=== PATIENT | male | born 1970 | race Caucasian/White ===

== ENCOUNTER 2019-03-11 14:59 | Inpatient (IN) ==
[2019-03-11] MEDS ORDERED: M.V.I.-12 10 ML, FOLIC ACID 1 MG, MAGNESIUM SULFATE 1 GM, THIAMINE 100 MG in NS 1,000 ML IV ONE (15:32)
[2019-03-11 16:18] LABS: BASO# 0.09 X1000 (0.0-0.2); BASO% 1.6 % (0.0-0.8); EOS# 0.03 X1000 (0.0-0.7); EOS% 0.5 % (0.0-10.0); HEMATOCRIT 42.1 % (42.0-52.0); LYMPH# 0.76 X1000 (1.2-3.4); LYMPH% 13.4 % (20.5-51.1); MCH 32.3 PG (27-31); MCHC 33.3 g/dL (33-37); MONO% 8.8 % (1.7-9.3); MPV 9.9 FL (7.4-10.4); NEUT% 75.7 % (42.2-75.2); PLT 70 X1000 (130-400); RBC 4.34 XMIL (4.7-6.1); RDW 16.7 % (11.5-14.5); WBC 5.68 X1000 (4.8-10.8)
--- NOTE | 2019-03-11 16:22 | Diag Imaging Result Doc PS360 ---
EXAM: CT MAXILLOFACIAL(SINUS) W/O CO 03/11/2019 HISTORY: swelling to face TECHNIQUE: CT of the facial bones COMMENT: There are mucus retention cysts in both maxillary sinuses. There are no air-fluid levels. There is no evidence of fracture. There is slight deviation of the nasal septum to the left. The infundibula are patent bilaterally. The orbits are unremarkable. There is apparent subcutaneous soft tissue swelling over the right cheek. This appears primarily superficial to the platysma. There is no evidence of discrete fluid collection to suggest an abscess. IMPRESSION: No evidence of acute bony abnormality. Superficial soft tissue inflammation on the right as described. Electronically signed by Mert Bartlett 03/11/2019 4:19 PM
--- NOTE | 2019-03-11 16:25 | Diag Imaging Result Doc PS360 ---
EXAM: CT HEAD/C-SPINE W/O CONTRAST 03/11/2019 HISTORY: AMS, poss LOC TECHNIQUE: This exam was performed using automated exposure control, adjustment of mA or kV according to patient size, and/or use of iterative reconstruction technique. COMMENT: There is no evidence of mass effect, bleed, or abnormal extra-axial fluid collection. The visualized paranasal sinuses are clear. cervical spine: There is marked disc space narrowing with anterior and posterior osteophyte formation at the C5-6 level. There is some uncovertebral arthropathy with encroachment on the intervertebral foramina at this level. No prevertebral soft tissue swelling is present. There is a calcified granuloma in the left apex. IMPRESSION: No evidence of acute intracranial disease. Degenerative disc disease at C5-6. Electronically signed by Mert Bartlett 03/11/2019 4:22 PM
--- NOTE | 2019-03-11 16:28 | Diag Imaging Result Doc PS360 ---
EXAM: RIBS BILATERAL W/PA CHEST 03/11/2019 HISTORY: rib pain, bruising TECHNIQUE: PA chest with bilateral RIBS seven views COMMENT: The inspiration is suboptimal. There is no evidence of acute cardiac or pulmonary disease. The ribs appear to be intact. IMPRESSION: No evidence of acute disease. Electronically signed by Mert Bartlett 03/11/2019 4:25 PM
[2019-03-11 16:37] LABS: AGAP 13; ALB/GLOB RATIO 1.8; ALBUMIN 5.1 g/dL (3.5-5.0); ALKALINE PHOSPHATASE 67 U/L (32-122); BUN 15 mg/dL (8-22); CALCIUM 9.1 mg/dL (8.8-10.2); CHLORIDE 104 mmol/L (98-107); COSMO 289; CREATININE 0.5 mg/dL (0.7-1.2); ESTIMATED GFR > 60; GLUCOSE 128 mg/dL (70-104); GOT 66 U/L (10-34); GPT 38 U/L (10-44); MAGNESIUM 2.1 mg/dL (1.5-2.7); SODIUM 144 mmol/L (136-145); TCO2 27 mmol/L (25-35); TOTAL BILIRUBIN 0.35 mg/dL (0.20-1.00)
[2019-03-11 16:43] LABS: CK PROFILE 1271 U/L (24-204)
[2019-03-11 17:00] LABS: CK INDEX 1.5 (0.0-2.5); CK-MB 19.32 ng/mL (0.0-5.0)
--- NOTE | 2019-03-11 17:23 | Diag Imaging Result Doc PS360 ---
EXAM: FOREARM-LEFT 03/11/2019 HISTORY: L arm pain TECHNIQUE: Left forearm two views COMMENT: There is no evidence of fracture, dislocation, or periosteal reaction. IMPRESSION: No acute bony abnormality. Electronically signed by Mert Bartlett 03/11/2019 5:21 PM
[2019-03-11] MEDS ORDERED: TYLENOL PO PRN (17:40)
[2019-03-11] MEDS ORDERED: ZOFRAN IV PRN (17:40)
[2019-03-11] MEDS ORDERED: ATIVAN IV PRN (17:40)
[2019-03-11 18:05] LABS: URINE SOURCE CLEAN CATCH
[2019-03-11 18:09] LABS: UR EPITHELIAL CELLS <10 /HPF (<10); URINE BACTERIA NEGATIVE /HPF; URINE RBC <10 /HPF (<10); URINE WBC <10 /HPF (<10)
[2019-03-11 18:10] LABS: BILIRUBIN URINE NEGATIVE (NEGATIVE); BLOOD URINE TRACE (NEGATIVE); COLOR YELLOW; GLUCOSE URINE NEGATIVE (NEGATIVE); KETONE URINE NEGATIVE (NEGATIVE); LEUKOCYTES URINE NEGATIVE (NEGATIVE); NITRITE URINE NEGATIVE (NEGATIVE); PH URINE 6.5; PROTEIN URINE 30 mg/dL (NEGATIVE); SP GRAVITY URINE 1.021; TURBIDITY URINE CLEAR (CLEAR); UROBILINOGEN URINE NORMAL (NORMAL)
[2019-03-11 18:26] LABS: UR AMPHETAMINES QUAL NONE DETECTED (NONE DETECT); UR BARBITUATES QUAL NONE DETECTED (NONE DETECT); UR BENZODIAZEPIN QUAL NONE DETECTED (NONE DETECT); UR CANNABINOIDS QUAL NONE DETECTED (NONE DETECT); UR COCAINE QUAL NONE DETECTED (NONE DETECT); UR METHADONE QUAL NONE DETECTED (NONE DETECT); UR OPIATES QUAL NONE DETECTED (NONE DETECT); UR OXYCODONE QUAL NONE DETECTED (NONE DETECT); UR PCP QUAL NONE DETECTED (NONE DETECT)
--- NOTE | 2019-03-11 18:41 | HISTORY AND PHYSICAL ---
PRIMARY CARE PROVIDER: None. CHIEF COMPLAINT: Blacked out and fell on his face, with a right facial contusion and skin tear, and alcohol intoxication. HISTORY OF PRESENT ILLNESS: Mr. Lambert Massey is a 48-year-old male with a long history of heavy alcohol abuse, with history of withdrawal seizures and SVT. He comes in today due to having a blackout spell where he hit his right cheekbone, and caused a significant contusion with a quarter-sized skin tear. His daughter brought him in. He has an alcohol level of 483. He also has some signs of dehydration and elevated CK, a little rhabdomyolysis without kidney involvement. With an alcohol level of 483, he is still able to stay perfectly awake, is able to answer all questions asked, gave great detail about his history. He is wishing that he could quit drinking. He is really tired of having blackout spells and having to hide the alcohol abuse. He states that he feels ashamed. PAST MEDICAL HISTORY: 1. Degenerative disk disease, C5 through C6. 2. Seizures secondary to alcohol withdrawal. Last one was around 6 months ago. He states he has only had 2 in his time as an alcoholic. 3. History of SVT that was also alcohol withdrawal-related. PAST SURGICAL HISTORY: Right inguinal hernia repair. SOCIAL HISTORY: He drinks 1 L of vodka per day for over a year. Prior to that he had quit for year and a half, and prior to that he stated he drank a lot of beer. He denies any tobacco abuse or illicit drug use. 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 His routine is around 4 a.m. he wakes up, takes a small breakfast and then he starts sipping the vodka all day long, essentially drinking 1 L per day. He claims to eat a healthy breakfast, blueberries, chicken. He works out at [employer] in [place]. He states he was for 22 years but is now . He had 3 children, all adult at this time. 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 He claims that he was not heavy drinker back then. He has had multiple attempts to stop drinking, but admits that AA meetings he feels like do not help. FAMILY HISTORY: Father had prostate cancer and from lung cancer. Mother is healthy at 90 years old. ALLERGIES: No known drug allergies. HOME MEDICATIONS: None. REVIEW OF SYSTEMS: He has multiple bruising and different stages of bruising that are a little painful. I believe it is his right forearm that is a little painful. His right facial area where he hit is a little tender. Otherwise he has no other complaints. Denies having any of the shakes at this time. PHYSICAL EXAMINATION: VITAL SIGNS: Temperature 98.6 degrees, heart rate 98, respiratory rate 18, blood pressure 124/85, O2 saturation 91% on room air. GENERAL: Five feet 10 inches tall, 160 pounds. BMI is 23. Mr. Lambert Massey is a 48-year-old male. He is in no acute distress. He is actually able to answer questions appropriately despite having a greater than 400 alcohol level 0. He has a strong smell of alcohol to his skin. HEENT: Right facial contusion with skin tear. Pupils equal, round and reactive to light. Extraocular movements intact. Mucous membranes are dry. NECK: Trachea midline. CARDIOVASCULAR: S1, S2. Regular rate and rhythm. No rubs, gallops, murmurs. No lower extremity edema. Dorsalis and radial pulses +2. Negative JVD or carotid bruits. PULMONARY: Clear to auscultation. Bilateral breath sounds. No accessory muscle use or work of breathing noted. GASTROINTESTINAL: Soft, nontender, nondistended. Positive bowel sounds x4. EXTREMITIES: Moves all extremities equally. Full range of motion. NEUROLOGIC: A and O x3. Follows commands. Sensory is intact. SKIN: Warm, dry. Right facial skin tear with contusion, and multiple stages of bruising throughout all extremities. LABORATORY DATA: White blood cells 5000, hemoglobin 14, hematocrit 42, platelet count 70,000. Sodium 144, potassium 4.0, BUN 15, creatinine 0.5, glucose 128, calcium 9.1, magnesium 2.1, bilirubin 0.35, AST 66, ALT 38. CK 1271, MB 19, albumin 5.1. Alcohol level is 483. DIAGNOSTIC DATA: Head and cervical spine CT: C5 through C6 degenerative disk disease but nothing acute. Maxillofacial CT: No evidence of acute injury except for there is soft tissue inflammation in the right cheek area. Ribs with chest x-ray: No acute findings. Right forearm x-ray: No fracture. ASSESSMENT AND PLAN: 1. Alcohol intoxication with blackout spell and fall, that resulted in a right facial contusion with skin tear. We will get Wound Care to see to the right facial skin tear. He will be on Librium, p.r.n. Ativan and watched in the intensive care unit. We will recheck another alcohol level in the morning. 2. Elevated CKs with normal kidney function. Likely just dehydration. He will get intravenous fluid hydration, along with a banana bag. 3. Thrombocytopenia with multiple bruising, also with a little bit of transaminitis. This is likely from longstanding alcohol abuse. 4. History of supraventricular tachycardia and seizures that resulted from alcohol withdrawal. We will just monitor. He will be in the intensive care unit for that and on telemetry with Ativan and Librium. 5. I believe he wishes to quit drinking alcohol. He will need inpatient help likely at some sort of facility if he wants to quit. Dictated by REHANA Tsai for Mello Hairston MD cc: REHANA Tsai MD
[2019-03-11] MEDS: LIBRIUM PO SCH (18:45)
--- NOTE | 2019-03-11 18:48 | HISTORY AND PHYSICAL ---
HISTORY OF PRESENT ILLNESS/PLAN: This is a 48-year-old gentleman, severe alcoholic. He drinks about a liter a day. Apparently, he fell earlier today. He does remember injuring his arm with bruising, but he does not remember how he injured his face, because he has an abrasion with some superficial oozing, bleeding, ecchymoses. The patient had an alcohol level of 483 to be exact and is showing some signs of withdrawal. He will be admitted for alcohol intoxication and detoxification. We will continue IV fluids, banana bag, and follow closely. He has some degree of rhabdomyolysis, which is probably just from the severe amount of alcohol that he has had, and the patient will be closely followed. This is a [id number] encounter note with Myrna Greer. cc: Mello Hairston MD
[2019-03-11] MEDS: PRILOSEC PO SCH (20:14)
[2019-03-11] MEDS: NS 1,000 ML IV SCH (20:14)
[2019-03-11] MEDS: ATIVAN IV PRN ×2 (20:54→22:50)
[2019-03-12] MEDS: LIBRIUM PO SCH ×4 (00:05→17:30)
[2019-03-12] MEDS: ATIVAN IV PRN ×7 (03:17→19:49)
[2019-03-12] MEDS: NS 1,000 ML IV SCH ×4 (03:17→17:30)
[2019-03-12 06:33] LABS: BASO# 0.07 X1000 (0.0-0.2); EOS# 0.06 X1000 (0.0-0.7); EOS% 1.8 % (0.0-10.0); HEMATOCRIT 37.3 % (42.0-52.0); HEMOGLOBIN 12.4 g/dL (14.0-18.0); LYMPH# 0.53 X1000 (1.2-3.4); LYMPH% 15.5 % (20.5-51.1); MCH 32.1 PG (27-31); MCHC 33.2 g/dL (33-37); MCV 96.6 FL (81-99); MONO# 0.47 X1000 (0.11-0.59); MONO% 13.7 % (1.7-9.3); MPV 10.2 FL (7.4-10.4); NEUT# 2.29 X1000 (1.4-6.5); PLT 55 X1000 (130-400); RBC 3.86 XMIL (4.7-6.1); RDW 15.9 % (11.5-14.5); WBC 3.42 X1000 (4.8-10.8)
[2019-03-12 06:47] LABS: AGAP 16; ALB/GLOB RATIO 1.5; ALBUMIN 4.1 g/dL (3.5-5.0); ALKALINE PHOSPHATASE 51 U/L (32-122); BUN 9 mg/dL (8-22); CALCIUM 7.9 mg/dL (8.8-10.2); CHLORIDE 106 mmol/L (98-107); COSMO 288; CREATININE 0.5 mg/dL (0.7-1.2); ESTIMATED GFR > 60; GLUCOSE 74 mg/dL (70-104); GOT 54 U/L (10-34); GPT 28 U/L (10-44); POTASSIUM 3.5 mmol/L (3.5-5.1); SODIUM 146 mmol/L (136-145); TCO2 24 mmol/L (25-35); TOTAL PROTEIN 6.9 g/dL (6.3-8.3)
[2019-03-12] MEDS: PRILOSEC PO SCH ×2 (07:34→08:10)
[2019-03-12] MEDS: M.V.I.-12 10 ML, FOLIC ACID 1 MG, MAGNESIUM SULFATE 1 GM, THIAMINE 100 MG in NS 1,000 ML IV SCH ×2 (07:34→08:10)
[2019-03-12 12:48] LABS: AGAP 12; ALB/GLOB RATIO 1.6; ALBUMIN 4.4 g/dL (3.5-5.0); ALKALINE PHOSPHATASE 59 U/L (32-122); BUN 9 mg/dL (8-22); CALCIUM 8.1 mg/dL (8.8-10.2); CHLORIDE 103 mmol/L (98-107); COSMO 281; CREATININE 0.5 mg/dL (0.7-1.2); ESTIMATED GFR > 60; GLUCOSE 120 mg/dL (70-104); GOT 55 U/L (10-34); GPT 30 U/L (10-44); POTASSIUM 3.4 mmol/L (3.5-5.1); SODIUM 141 mmol/L (136-145); TCO2 26 mmol/L (25-35); TOTAL BILIRUBIN 0.84 mg/dL (0.20-1.00); TOTAL PROTEIN 7.2 g/dL (6.3-8.3)
--- NOTE | 2019-03-12 12:58 | PROGRESS NOTE ---
DATE: 03/12/2019 SUBJECTIVE: The patient is awake, alert. He is tremulous despite Librium. OBJECTIVE DATA: His blood pressure is 132/97, heart rate of 88, respiratory rate of 30, saturations are 93% on 2 L.Cardiovascular: Regular rate and rhythm. Pulmonary: Bilateral breath sounds. Clear to auscultation. GI: Soft, nontender, nondistended. Bowel sounds are positive. LABORATORY DATA: White count is 3, hemoglobin and hematocrit 12 and 37, platelets of 55,000. Sodium is 146, AST is 54. Alcohol is down to 161. PROBLEM LIST: 1. Alcohol withdrawal syndrome. He is probably going to start withdrawing now so we will continue the Librium. He is on a banana bag. IV fluids and continue to monitor. I think he is probably stable enough for transfer. 2. Relative hypoxia. I am not quite sure why he has an O2 requirement, but we will continue to follow. 3. Elevated transaminases. We will get a right upper quadrant and check hepatitis but it is most likely related to significant alcohol abuse. DISPOSITION: He is still in the withdrawal phase. We will continue to follow closely. cc: Mello Hairston MD
[2019-03-12] MEDS ORDERED: ATIVAN IV PRN (20:40)
[2019-03-12] MEDS: ATIVAN 20 MG in NS 190 ML IV SCH (20:57)
[2019-03-12] MEDS ORDERED: PHENOBARBITAL IV PRN (21:17)
[2019-03-12] MEDS ORDERED: PHENOBARBITAL IV ONE ×2 (23:09→23:34)
[2019-03-12 23:58] LABS: URINE SOURCE CATH
[2019-03-13 00:03] LABS: BILIRUBIN URINE NEGATIVE (NEGATIVE); BLOOD URINE NEGATIVE (NEGATIVE); COLOR STRAW; GLUCOSE URINE NEGATIVE (NEGATIVE); KETONE URINE NEGATIVE (NEGATIVE); LEUKOCYTES URINE NEGATIVE (NEGATIVE); NITRITE URINE NEGATIVE (NEGATIVE); PH URINE 7.5; PROTEIN URINE NEGATIVE (NEGATIVE); SP GRAVITY URINE 1.007; TURBIDITY URINE CLEAR (CLEAR); UR EPITHELIAL CELLS <10 /HPF (<10); URINE BACTERIA NEGATIVE /HPF; URINE RBC <10 /HPF (<10); URINE WBC <10 /HPF (<10); UROBILINOGEN URINE NORMAL (NORMAL)
[2019-03-13] MEDS: LIBRIUM PO SCH ×5 (00:33→23:39)
[2019-03-13] MEDS: NS 1,000 ML IV SCH ×4 (00:33→18:30)
[2019-03-13] MEDS: ATIVAN IV PRN ×2 (02:15→21:41)
[2019-03-13 05:14] LABS: BASO# 0.05 X1000 (0.0-0.2); BASO% 1.1 % (0.0-0.8); EOS# 0.05 X1000 (0.0-0.7); EOS% 1.1 % (0.0-10.0); HEMATOCRIT 39.2 % (42.0-52.0); HEMOGLOBIN 13.4 g/dL (14.0-18.0); LYMPH# 0.38 X1000 (1.2-3.4); LYMPH% 8.2 % (20.5-51.1); MCH 32.8 PG (27-31); MCHC 34.2 g/dL (33-37); MCV 95.8 FL (81-99); MONO# 0.63 X1000 (0.11-0.59); MONO% 13.5 % (1.7-9.3); MPV 10.6 FL (7.4-10.4); NEUT# 3.55 X1000 (1.4-6.5); NEUT% 76.1 % (42.2-75.2); PLT 54 X1000 (130-400); RBC 4.09 XMIL (4.7-6.1); RDW 15.3 % (11.5-14.5); WBC 4.66 X1000 (4.8-10.8)
[2019-03-13] MEDS: ATIVAN 20 MG in NS 190 ML IV SCH (06:12)
--- NOTE | 2019-03-13 09:10 | Diag Imaging Result Doc PS360 ---
EXAM: US GB < RUQ (LIMITED) 03/13/2019 HISTORY: elevated liver enzymes TECHNIQUE: Right upper quadrant ultrasound COMMENT: The visualized portions of the aorta and inferior vena cava are within normal limits. The pancreatic head and body are normal in appearance. The liver is slightly hyperechoic. There is no evidence of biliary dilatation the common bile duct measuring 3 mm. There is antegrade flow in the portal vein. There is a fairly hyperechoic nodular echo within the gallbladder which does not appear to move and may represent a polyp. The gallbladder wall is slightly thickened. There is no evidence of para cholecystic fluid. There is no sonographic Gonzales sign. No abnormal fluid collections are present. The right kidney is without evidence of hydronephrosis or mass. IMPRESSION: The possibility of chronic cholecystitis and gallbladder polyp cannot be excluded. Hepatic steatosis. Electronically signed by Mert Bartlett 03/13/2019 9:08 AM
--- NOTE | 2019-03-13 09:18 | Diag Imaging Result Doc PS360 ---
EXAM: CHEST-2 VIEWS 03/13/2019 HISTORY: hypoxia TECHNIQUE: PA and lateral chest COMMENT: There is no evidence of acute cardiac or pulmonary disease. Compared to 03/11/2019 the lungs are better expanded previously. IMPRESSION: No definite evidence of acute disease. Electronically signed by Mert Bartlett 03/13/2019 9:16 AM
[2019-03-13] MEDS: PRILOSEC PO SCH (09:25)
[2019-03-13] MEDS: M.V.I.-12 10 ML, FOLIC ACID 1 MG, MAGNESIUM SULFATE 1 GM, THIAMINE 100 MG in NS 1,000 ML IV SCH (09:25)
[2019-03-13 10:57] LABS: AGAP 14; BUN 7 mg/dL (8-22); CALCIUM 8.6 mg/dL (8.8-10.2); CHLORIDE 103 mmol/L (98-107); COSMO 277; CREATININE 0.5 mg/dL (0.7-1.2); ESTIMATED GFR > 60; GLUCOSE 94 mg/dL (70-104); POTASSIUM 3.1 mmol/L (3.5-5.1); SODIUM 140 mmol/L (136-145); TCO2 23 mmol/L (25-35)
--- NOTE | 2019-03-13 14:46 | PROGRESS NOTE ---
DATE: 03/13/2019 SUBJECTIVE: The patient has no major complaints. OBJECTIVE: Blood pressure is 115/78, heart rate 88, respiratory rate 25, temperature 98.4 degrees, 96% on room air. Cardiovascular: Regular rate and rhythm. Pulmonary: Bilateral breath sounds clear to auscultation. GI: Soft, nontender, nondistended. Bowel sounds were positive. Laboratory Data: White count is 4, hemoglobin and hematocrit 13 and 39, platelets of 54,000. Potassium is 3.1. CPK is 711. PROBLEM LIST: 1. Alcohol withdrawal syndrome. He seems to be doing okay from the alcohol syndrome but his confusion is significantly increased and he is on Ativan. He is on an Ativan drip so we will continue to follow. He got significantly worse but I do not think he really started withdrawing until today or yesterday evening because his alcohol level yesterday morning was still 160. 2. Hypoxia, history of tobacco abuse. Chest x-ray is clear. I am not sure if this is some sleep apnea issues that have been undiagnosed. We will continue to follow. 3. Alcoholic hepatitis. His numbers are slowly trending downward so I am still waiting on his viral hepatitis screen. We will employment counselor on alcohol abuse. DISPOSITION: Pending clinical status but he is on an Ativan drip so he will have to be in the ICU. We will continue to follow. cc: Mello Hairston MD
--- NOTE | 2019-03-13 19:14 | PROVIDER DOCUMENTATION ---
This chart was entered by Emelia Sandhu Scribe, acting as scribe for Sadia Corona CRNP. HPI-Head Injury - General Chief Complaint: Head Injury Stated Complaint: DETOX--FACIAL INJURY Time Seen by Provider: 03/11/19 15:20 Source: patient, family (daughter) Allergies/Adverse Reactions: Patient Allergies Allergy/AdvReac Type Severity Reaction Status Date / Time No Known Allergies Allergy Verified 07/27/18 14:08 Home Medications: Home Medication List Medication Instructions Recorded Confirmed Last Taken Type Baclofen 10 mg PO TID #42 tab 07/30/18 Unknown Rx Chlordiazepoxide [Librium] 10 mg PO DIRECTED #45 cap 07/30/18 Unknown Rx Multivitamins/Minerals [Centrum 1 each PO DAILY tablet 07/30/18 Unknown Rx Silver] Omeprazole [Prilosec] 20 mg PO BID #60 cap 07/30/18 Unknown Rx - History of Present Illness-Head Injury Nature of Presenting Problem: 48 yowm presents to the ed with daughter at bedside requesting detox for pt. pt on exam has bruising with abrasions noted to bilateral back and rt cheek. pt sts back abrasion was from a fall yesterday in his bathroom and fell hitting a magazine rack. pt daughter sts she left the pt at home alone for 10 minutes and came back and pt was on the couch with a skin tear to rt cheek. pt sts "I don't know what happened" pt daughter sts she found a few droplets of blood but can not find where injury occurred in the home. Head Injury Location: reports: frontal (rt cheek) Other injuries associated with incident:: reports: mouth (hematoma to bottom lip) Quality of Pain: reports: aching Severity: reports: mild Onset/Duration: reports: just prior to arrival (also had a fall yesterday as well) Timing: reports: still present Method of Injury: reports: fell Any recent trauma/injury?: reports: minor, to head Loss of Consciousness: unsure Modifying Factors: improves with: nothing. worse with: palpation Injury Associated Symptoms: reports: back/neck pain, other (etoh abuse). denies: headaches, nausea, shortness of breath, snap/crack/pop sensation, vomiting, trouble walking Locality of Occurance: Home Similar Symptoms Previously?: Yes (etoh abuse) Recently seen or treated by another doctor?: No Review of Systems - Adult - REVIEW OF SYSTEMS - ADULT Constitutional: reports: no symptoms reported Eyes: reports: no symptoms reported Ears, Nose, Mouth & Throat: reports: see HPI, other (skin tear to face) Cardiovascular: denies: chest pain, palpitations Respiratory: denies: cough, shortness of breath, wheezing Gastrointestinal: denies: diarrhea, nausea, vomiting Genitourinary: reports: no symptoms reported Musculoskeletal: denies: back pain, neck pain Integumentary: reports: see HPI, other (bruising and abrasion to fall) Neurological: reports: see HPI, loss of balance, slurred speech. denies: dizziness/vertigo, headache/migraines Psychiatric: reports: see HPI, alcohol/drug dependence (etoh) Endocrine: reports: no symptoms reported Hematologic/Lymphatic: reports: no symptoms reported Allergic/Immunologic: reports: no symptoms reported All Other Systems: Reviewed and Negative Past History - Adult - PAST MEDICAL HISTORY-ADULT Review of Records: reports: Old Records Reviewed, Nursing Assessment Review, Medications Reviewed, Social history reviewed & non-contributory. Major Childhood Illnesses: reports: denies history Cardiovascular: reports: A-Fib, arrhythmia (SVT with ablation) Respiratory: reports: denies history Gastrointestinal: reports: denies history Genitourinary: reports: denies history Musculoskeletal: reports: denies history Neurological: reports: denies history, Seizures/Epilepsy (with etoh withdrawl) Psychiatric: reports: anxiety, depression Endocrine/Immune: reports: denies history Other Conditions: reports: denies history - PRIOR SURGERIES/PROCEDURES Surgical/Procedure History: reports: hernia repair, other (ablation) - IMMUNIZATION STATUS Childhood Immunizations: See Nurse Assessment Flu Vaccine: See Nurse Assessment - FAMILY HISTORY Family History: reviewed, not pertinent - SOCIAL HISTORY Smoking: denies Substance Use: alcohol Alcohol Use Frequency: every day (a pint of vodka a day) Living Situation: alone Physical Exam- Neurological - Physical Exam-Neuro Initial Vital Signs Reviewed: Yes General Appearance: alert, other (etoh abuse) Eye Exam: bilateral eye: normal inspection, PERRL, EOMI HENMT: moist mucous membranes Head Injury: ecchymosis (rt cheek), swelling (rt cheek), tenderness (rt cheek), other (skin tear noted) Neck: full range of motion, supple, normal inspection Respiratory: chest non-tender, lungs clear, normal breath sounds Cardiovascular: normal peripheral pulses, tachycardia (117) Abdominal Exam: normal bowel sounds, non tender, soft Lymphatic: no adenopathy Extremity: normal range of motion, non-tender, normal gait, normal capillary refill, swelling (L forearm), other (L forearm ecchymosis). negative: deformity, erythema, pulse deficit, pedal edema applications development consultant Exam: PERRL, abnormal speech (slurring secondary to etoh) Neurologic: abnormal gait. negative: facial droop Integumentary: warm/dry, abrasion(s) (noted to back/face), ecchymosis (back/face), swelling (face), tenderness (back) Psych/Mental Status: oriented x 3 - Glascow Coma Scale Best Eye Response: (4) open spontaneously Best Verbal Response: (5) oriented Best Motor Response: (6) obeys commands Total Glascow Score: 15 Progress - PLAN OF CARE/RESULTS Progress/Plan/Lab Results: Vital Signs - 8 hr 03/11/19 15:04 Temperature 98.6 F Pulse Rate 117 H Respiratory Rate 18 Blood Pressure 141/92 O2 Sat by Pulse Oximetry 92 L Laboratory Results - last 24 hr 03/11/19 03/11/19 03/11/19 15:55 15:55 15:55 WBC 5.68 RBC 4.34 L Hgb 14.0 Hct 42.1 MCV 97.0 MCH 32.3 H MCHC 33.3 RDW Std Deviation 16.7 H Plt Count 70 L MPV 9.9 Immature Gran % (Auto) 0.0 Neut % (Auto) 75.7 H Lymph % (Auto) 13.4 L Stoddard % (Auto) 8.8 Eos % (Auto) 0.5 Baso % (Auto) 1.6 H Immature Gran # (Auto) 0.00 Neut # (Auto) 4.30 Lymph # (Auto) 0.76 L Stoddard # (Auto) 0.50 Eos # (Auto) 0.03 Baso # (Auto) 0.09 Sodium 144 Potassium 4.0 Chloride 104 Carbon Dioxide 27 Anion Gap 13 BUN 15 Creatinine 0.5 L Estimated GFR/1.73 m2 > 60 BUN/Creatinine Ratio 30 Glucose 128 H Calculated Osmolality 289 Calcium 9.1 Magnesium 2.1 Total Bilirubin 0.35 AST 66 H ALT 38 Alkaline Phosphatase 67 Creatine Kinase 1271 H Creatine Kinase Index 1.5 CK-MB (CK-2) 19.32 H Troponin T Total Protein 8.0 Albumin 5.1 H Globulin 2.9 Albumin/Globulin Ratio 1.8 Plasma/Serum Ethyl Alc 483 H* 03/11/19 15:55 WBC RBC Hgb Hct MCV MCH MCHC RDW Std Deviation Plt Count MPV Immature Gran % (Auto) Neut % (Auto) Lymph % (Auto) Stoddard % (Auto) Eos % (Auto) Baso % (Auto) Immature Gran # (Auto) Neut # (Auto) Lymph # (Auto) Stoddard # (Auto) Eos # (Auto) Baso # (Auto) Sodium Potassium Chloride Carbon Dioxide Anion Gap BUN Creatinine Estimated GFR/1.73 m2 BUN/Creatinine Ratio Glucose Calculated Osmolality Calcium Magnesium Total Bilirubin AST ALT Alkaline Phosphatase Creatine Kinase Creatine Kinase Index CK-MB (CK-2) Troponin T < 0.010 Total Protein Albumin Globulin Albumin/Globulin Ratio Plasma/Serum Ethyl Alc Orders Category Date Time Status Nursing [[facility] [place] [facility] Communication Order] DIRECTED Care 03/11/19 17:02 Active Repeat Vital Signs .Heart Rate Care 03/11/19 17:[address] HEAD/C-SPINE W/O CONTRAST [CT] Stat Exams 03/11/19 15:[address] MAXILLOFACIAL(SINUS) W/O CO [CT] Stat Exams 03/11/19 15:26 Completed FOREARM-LEFT [RAD] Stat Exams 03/11/19 16:54 Ordered RIBS BILATERAL W/PA CHEST [RAD] Stat Exams 03/11/19 15:26 Completed ALCOHOL BLOOD Stat Lab 03/11/19 15:55 Completed CBC WITH DIFF [HEME] Stat Lab 03/11/19 15:55 Completed CK PROFILE [SP CHEM] Stat Lab 03/11/19 15:55 Completed COMPREHENSIVE METABOLIC PANEL [CHEM] Stat Lab 03/11/19 15:55 Completed MAGNESIUM [CHEM] Stat Lab 03/11/19 15:55 Completed TROPONIN T Stat Lab 03/11/19 15:55 Completed Mvi [M.v.i.-12] 10 ml Med 03/11/19 15:32 Discontinued Folic Acid 1 mg Magnesium Sulfate 1 gm Thiamine 100 mg 0.9% Sodium Chloride Inj [Ns] 1,000 ml IV NOW Result Diagrams: 03/11/19 15:55 03/11/19 15:55 - REASSESSMENT Reassessment #1 Time Reassessed: 16:56 (reviewed results with pt. Made aware of blood alcohol and will monitor pt for several hours.) Reassessment #2 Time Reassessed: 17:02 (Pt requests pt be admitted, will call hospitalist) - XRAY 1 XRAY Study: Chest, Ribs Impression: See EMR Report (COMMENT: The inspiration is suboptimal. There is no evidence of acute cardiac or pulmonary disease. The ribs appear to be intact. IMPRESSION: No evidence of acute disease.) - CT/MRI 1 CT Study: Cervical Spine, Head Impression: See EMR Report (COMMENT: There is no evidence of mass effect, bleed, or abnormal extra-axial fluid collection. The visualized paranasal sinuses are clear. cervical spine: There is marked disc space narrowing with anterior and posterior osteophyte formation at the C5-6 level. There is some uncovertebral arthropathy with encroachment on the intervertebral foramina at this level. No prevertebral soft tissue swelling is present. There is a calcified granuloma in the left apex. IMPRESSION: No evidence of acute intracranial disease. Degenerative disc disease at C5-6.) 2 CT Study: other (maxillofacial) Impression: See EMR Report (COMMENT: There are mucus retention cysts in both maxillary sinuses. There are no air-fluid levels. There is no evidence of fracture. There is slight deviation of the nasal septum to the left. The infundibula are patent bilaterally. The orbits are unremarkable. There is apparent subcutaneous soft tissue swelling over the right cheek. This appears primarily superficial to the platysma. There is no evidence of discrete fluid collection to suggest an abscess. IMPRESSION: No evidence of acute bony abnormality. Superficial soft tissue inflammation on the right as described.) - CONSULTS/PCP/HOSPITALIST Notification #1 *Consult/PCP/Hospitalist*: DARRIAN Norris hospitalist Time Discussed: 17:06 Consult Disposition: Will see in ED, Admit Departure - Departure Date of Disposition Decision: 03/11/19 Time of Disposition Decision: 17:07 DIAGNOSIS: Alcoholism /alcohol abuse Disposition: ADMITTED INPATIENT 09 Certified Medical Emergency: Emergent Condition: Fair Referrals and Follow-Ups: None,PCP [Primary Care Provider] - - Critical Care Note This patient required my direct & personal management of CC.: No Attestation - Physician/ ROGERS Attestation Patient care was provided by Advanced Practice Provider:: Yes Advanced Practice Provider:: Sadia Corona Advanced Practice Provider documentation review:: The Mid-level provider documentation, treatment plan and medical decision making was reviewed by the physician who agrees with all treatment and medical decision making by the MLP. The physician spent face to face time with patient:: No Advanced Practice Provider documentation review:: Supervising physician onsite and consulted in the evaluation and care of this patient. The physician did not have a face to face encounter with the patient. This chart was documented by the indicated scribe, (Emelia Sandhu Scribe) and accurately reflects the services I performed and decisions made by me, Sadia Corona, REHANA, as attested by the provider's signature.
[2019-03-14] MEDS: NS 1,000 ML IV SCH ×3 (01:54→17:32)
[2019-03-14] MEDS: ATIVAN IV PRN ×2 (01:58→20:08)
[2019-03-14] MEDS: LIBRIUM PO SCH ×4 (05:34→23:42)
[2019-03-14] MEDS: ATIVAN 20 MG in NS 190 ML IV SCH (05:36)
[2019-03-14 06:11] LABS: HEMATOCRIT 41.3 % (42.0-52.0); HEMOGLOBIN 14.2 g/dL (14.0-18.0); MCH 32.6 PG (27-31); MCHC 34.4 g/dL (33-37); MCV 94.9 FL (81-99); MPV 11.4 FL (7.4-10.4); RBC 4.35 XMIL (4.7-6.1); WBC 5.27 X1000 (4.8-10.8)
[2019-03-14 06:25] LABS: AGAP 15; ALB/GLOB RATIO 1.5; ALBUMIN 4.4 g/dL (3.5-5.0); ALKALINE PHOSPHATASE 73 U/L (32-122); BUN 5 mg/dL (8-22); CALCIUM 8.6 mg/dL (8.8-10.2); CHLORIDE 102 mmol/L (98-107); CK TOTAL 619 U/L (24-204); COSMO 271; CREATININE 0.5 mg/dL (0.7-1.2); ESTIMATED GFR > 60; GLUCOSE 102 mg/dL (70-104); GOT 96 U/L (10-34); GPT 61 U/L (10-44); POTASSIUM 3.1 mmol/L (3.5-5.1); SODIUM 137 mmol/L (136-145); TCO2 20 mmol/L (25-35); TOTAL PROTEIN 7.4 g/dL (6.3-8.3)
[2019-03-14] MEDS: PRILOSEC PO SCH (09:13)
[2019-03-14] MEDS: M.V.I.-12 10 ML, FOLIC ACID 1 MG, MAGNESIUM SULFATE 1 GM, THIAMINE 100 MG in NS 1,000 ML IV SCH (09:13)
[2019-03-14] MEDS ORDERED: NICODERM PATCH TD PRN (11:25)
[2019-03-14] MEDS ORDERED: HALDOL IV PRN (11:25)
--- NOTE | 2019-03-14 12:06 | PROGRESS NOTE ---
DATE: 03/14/2019 SUBJECTIVE: Patient has no major complaints. OBJECTIVE: Vital Signs: Blood pressure 128/73, heart rate of 91, respiratory rate of 19, temperature 98.3 degrees, 97% on room air. Cardiovascular: Regular rate and rhythm. Pulmonary: Bilateral breath sounds clear to auscultation. Gastrointestinal: Soft, nontender, nondistended. Bowel sounds are positive. LABORATORY DATA: White count is 5, hemoglobin 14, hematocrit 41, platelets of 68,000. Potassium is 3.1, AST 96, ALT 61. CK is 619. PROBLEM LIST: 1. Alcohol withdrawal syndrome. Seems to be doing okay, but still very agitated. I am going to leave him on the Librium. He is on other p.r.n. medications as well. 2. History of tobacco abuse. 3. We will continue IV fluids and follow closely. 4. Agitation, likely related to chronic alcohol abuse and withdrawal. DISPOSITION: Pending his clinical status. We will continue to follow. He is still very agitated and so we will continue to follow. cc: Mello Hairston MD MTDD
[2019-03-14 14:43] LABS: HEPATITIS PROFILE ACUTE SEE COMMENTS
[2019-03-15] MEDS: ATIVAN IV PRN ×3 (00:33→23:15)
[2019-03-15] MEDS: NS 1,000 ML IV SCH ×4 (02:23→17:03)
[2019-03-15] MEDS: LIBRIUM PO SCH ×4 (05:03→23:15)
[2019-03-15 06:09] LABS: HEMATOCRIT 41.3 % (42.0-52.0); HEMOGLOBIN 14.2 g/dL (14.0-18.0); MCH 32.4 PG (27-31); MCHC 34.4 g/dL (33-37); MCV 94.3 FL (81-99); RBC 4.38 XMIL (4.7-6.1); RDW 14.9 % (11.5-14.5); WBC 5.03 X1000 (4.8-10.8)
[2019-03-15 06:29] LABS: AGAP 13; ALB/GLOB RATIO 1.4; ALBUMIN 4.2 g/dL (3.5-5.0); ALKALINE PHOSPHATASE 69 U/L (32-122); BUN 5 mg/dL (8-22); CALCIUM 8.1 mg/dL (8.8-10.2); CHLORIDE 107 mmol/L (98-107); CK TOTAL 495 U/L (24-204); COSMO 277; CREATININE 0.5 mg/dL (0.7-1.2); ESTIMATED GFR > 60; GLUCOSE 103 mg/dL (70-104); GOT 56 U/L (10-34); GPT 48 U/L (10-44); POTASSIUM 3.3 mmol/L (3.5-5.1); SODIUM 140 mmol/L (136-145); TCO2 20 mmol/L (25-35); TOTAL BILIRUBIN 0.87 mg/dL (0.20-1.00); TOTAL PROTEIN 7.2 g/dL (6.3-8.3)
[2019-03-15] MEDS: PRILOSEC PO SCH (08:11)
[2019-03-15] MEDS: M.V.I.-12 10 ML, FOLIC ACID 1 MG, MAGNESIUM SULFATE 1 GM, THIAMINE 100 MG in NS 1,000 ML IV SCH (08:42)
--- NOTE | 2019-03-15 12:10 | PROGRESS NOTE ---
DATE: 03/15/2019 SUBJECTIVE: Patient has no major complaints. OBJECTIVE: Vital Signs: Blood pressure is 127/91, heart rate 92, respiratory rate 23, temperature 98.8 degrees, satting 98% on room air. Cardiovascular: Regular rate and rhythm. Pulmonary: Bilateral breath sounds. Clear to auscultation. GI: Soft, nontender, nondistended. Bowel sounds are positive. LABORATORY DATA: White count 5, hemoglobin and hematocrit 14 and 41, platelets of 88. Potassium 3.3. CPK was down to 495. AST and ALT of 56 and 48. PROBLEM LIST: 1. Alcohol withdrawal syndrome. He is still on a Librium taper. We will continue that for now. He is still in restraints, but he is more oriented today, so I think he is improving. 2. Elevated liver enzymes likely related to alcoholic hepatitis. These are stable elevations. His ultrasound shows steatohepatitis, but there is also question of chronic cholecystitis, so I am planning a HIDA scan when he is more stable. Just right now, I am not sure he will really cooperate very well. 3. Tobacco abuse. 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 DISPOSITION: I think we need to start working on getting him out of bed and all that. He may be more stable for step-down, but we will see how he does. cc: Mello Hairston MD
[2019-03-16] MEDS: NS 1,000 ML IV SCH ×3 (02:37→12:29)
[2019-03-16] MEDS: ATIVAN IV PRN ×2 (03:13→17:37)
[2019-03-16] MEDS: LIBRIUM PO SCH ×2 (05:45→12:29)
[2019-03-16 06:23] LABS: HEMATOCRIT 41.6 % (42.0-52.0); HEMOGLOBIN 14.5 g/dL (14.0-18.0); MCHC 34.9 g/dL (33-37); MCV 94.5 FL (81-99); MPV 10.7 FL (7.4-10.4); RBC 4.4 XMIL (4.7-6.1); RDW 14.8 % (11.5-14.5); WBC 3.67 X1000 (4.8-10.8)
[2019-03-16 06:59] LABS: AGAP 11; ALB/GLOB RATIO 1.3; ALBUMIN 4.3 g/dL (3.5-5.0); ALKALINE PHOSPHATASE 67 U/L (32-122); BUN 4 mg/dL (8-22); CALCIUM 8.3 mg/dL (8.8-10.2); CHLORIDE 105 mmol/L (98-107); CK TOTAL 231 U/L (24-204); COSMO 268; CREATININE 0.5 mg/dL (0.7-1.2); ESTIMATED GFR > 60; GLUCOSE 90 mg/dL (70-104); GOT 40 U/L (10-34); GPT 40 U/L (10-44); SODIUM 136 mmol/L (136-145); TCO2 20 mmol/L (25-35); TOTAL BILIRUBIN 0.79 mg/dL (0.20-1.00); TOTAL PROTEIN 7.5 g/dL (6.3-8.3)
[2019-03-16] MEDS: M.V.I.-12 10 ML, FOLIC ACID 1 MG, MAGNESIUM SULFATE 1 GM, THIAMINE 100 MG in NS 1,000 ML IV SCH (08:11)
[2019-03-16] MEDS: PRILOSEC PO SCH (08:11)
[2019-03-16] MEDS ORDERED: POTASSIUM CHLORIDE 40 MEQ/SWI 40 MEQ/100 ML IVPB IV ONE (11:08)
[2019-03-16] MEDS ORDERED: KLOR-CON PO ONE (11:08)
[2019-03-16] MEDS: POTASSIUM CHLORIDE 20 MEQ/SWI 20 MEQ/100 ML IVPB IV SCH ×2 (12:26→14:23)
[2019-03-16] MEDS ORDERED: M.V.I.-12 10 ML, FOLIC ACID 1 MG, MAGNESIUM SULFATE 1 GM, THIAMINE 100 MG in NS 1,000 ML IV SCH (15:07)
--- NOTE | 2019-03-16 15:32 | PROGRESS NOTE ---
DATE: 03/16/2019 SUBJECTIVE: Patient has no major complaints and seems like he is pretty much back to baseline. Nurse reports he still sometimes has some odd comments but he seems oriented. He is out of restraints. OBJECTIVE: Blood pressure 118/83, heart rate 85, respiratory rate 21, temperature 98.8 degrees, 98% on room air.Cardiovascular: Regular rate and rhythm. Pulmonary: Bilateral breath sounds. Clear to auscultation. GI: Soft, nontender, nondistended. Bowel sounds are positive. LABORATORY DATA: White count is 3, hemoglobin and hematocrit 14, 41, platelets 126,000 which is improvement. Potassium still low at 3. AST of 40. Viral hepatitis was negative. PROBLEM LIST: 1. Alcohol withdrawal syndrome. He is on a Librium taper. I am going to taper a little bit more today. We will continue to follow. Get him out of restraints. Start working on getting him out of bed. 2. Alcoholic hepatitis, steatohepatitis, mild. I think we could probably do a HIDA scan tomorrow. He seems better so will pursue that. 3. Tobacco abuse. Counseled on cessation. DISPOSITION: Once he is stabilizing enough I think we are going to plan to check him out tomorrow, evaluate for discharge. Disposition, like I said home in the next 1 to 2 days. cc: Mello Hairston MD
[2019-03-16] MEDS ORDERED: LIBRIUM PO SCH (17:00)
[2019-03-17] MEDS: LIBRIUM PO SCH ×4 (01:00→21:03)
[2019-03-17 07:20] LABS: HEMATOCRIT 41.6 % (42.0-52.0); HEMOGLOBIN 13.9 g/dL (14.0-18.0); MCH 32.8 PG (27-31); MCHC 33.4 g/dL (33-37); MCV 98.1 FL (81-99); MPV 10.8 FL (7.4-10.4); RBC 4.24 XMIL (4.7-6.1); RDW 15.1 % (11.5-14.5); WBC 3.69 X1000 (4.8-10.8)
[2019-03-17 07:53] LABS: AGAP 10; BUN 4 mg/dL (8-22); CHLORIDE 107 mmol/L (98-107); COSMO 278; CREATININE 0.5 mg/dL (0.7-1.2); ESTIMATED GFR > 60; GLUCOSE 101 mg/dL (70-104); MAGNESIUM 2.2 mg/dL (1.5-2.7); POTASSIUM 3.3 mmol/L (3.5-5.1); SODIUM 141 mmol/L (136-145); TCO2 24 mmol/L (25-35)
[2019-03-17] MEDS: FOLIC ACID PO SCH (08:08)
[2019-03-17] MEDS: THERA M PLUS PO SCH (08:08)
[2019-03-17] MEDS: VITAMIN B-1 PO SCH (08:08)
[2019-03-17] MEDS: PRILOSEC PO SCH (08:09)
[2019-03-17] MEDS ORDERED: KLOR-CON PO ONE (10:16)
[2019-03-17] MEDS: ATIVAN IV PRN ×2 (13:52→20:37)
--- NOTE | 2019-03-17 14:01 | Diag Imaging Result Doc PS360 ---
EXAM: HIDA SCAN W/ EJECTION FRACTION 03/17/2019 HISTORY: abnormal gb scan TECHNIQUE: 4.9 mCi of technetium 99m Choletec. COMMENT: There is activity in the gallbladder by seven minutes. Following fatty meal administration the gallbladder ejects 99% of the activity. IMPRESSION: Normal study. Electronically signed by Mert Bartlett 03/17/2019 1:59 PM
[2019-03-17 17:30] LABS: AGAP 13; ALB/GLOB RATIO 1.5; ALBUMIN 4.7 g/dL (3.5-5.0); ALKALINE PHOSPHATASE 72 U/L (32-122); BUN 8 mg/dL (8-22); CALCIUM 9.8 mg/dL (8.8-10.2); CHLORIDE 103 mmol/L (98-107); COSMO 279; CREATININE 0.7 mg/dL (0.7-1.2); ESTIMATED GFR > 60; GLUCOSE 95 mg/dL (70-104); GOT 29 U/L (10-34); GPT 36 U/L (10-44); POTASSIUM 3.5 mmol/L (3.5-5.1); SODIUM 141 mmol/L (136-145); TCO2 25 mmol/L (25-35); TOTAL BILIRUBIN 0.64 mg/dL (0.20-1.00); TOTAL PROTEIN 7.9 g/dL (6.3-8.3)
[2019-03-18] MEDS: ATIVAN IV PRN ×4 (00:38→20:04)
[2019-03-18] MEDS: LIBRIUM PO SCH ×4 (03:19→20:04)
[2019-03-18] MEDS: PRILOSEC PO SCH (06:06)
[2019-03-18 07:26] LABS: BASO# 0.04 X1000 (0.0-0.2); BASO% 1.1 % (0.0-0.8); EOS# 0.12 X1000 (0.0-0.7); EOS% 3.3 % (0.0-10.0); HEMATOCRIT 42.4 % (42.0-52.0); HEMOGLOBIN 14.3 g/dL (14.0-18.0); LYMPH% 16.3 % (20.5-51.1); MCH 32.4 PG (27-31); MCHC 33.7 g/dL (33-37); MCV 95.9 FL (81-99); MONO# 0.62 X1000 (0.11-0.59); MONO% 16.8 % (1.7-9.3); MPV 10.6 FL (7.4-10.4); NEUT# 2.31 X1000 (1.4-6.5); NEUT% 62.5 % (42.2-75.2); PLT 164 X1000 (130-400); RBC 4.42 XMIL (4.7-6.1); RDW 14.9 % (11.5-14.5); WBC 3.69 X1000 (4.8-10.8)
[2019-03-18] MEDS: VITAMIN B-1 PO SCH (08:31)
[2019-03-18] MEDS: FOLIC ACID PO SCH (08:31)
[2019-03-18] MEDS: THERA M PLUS PO SCH (08:31)
--- NOTE | 2019-03-18 11:14 | PROGRESS NOTE ---
DATE: 03/18/2019 SUBJECTIVE: Patient has no major complaints. He is much more awake, alert. He is still kind of intermittently disoriented apparently and he has trouble ambulating without getting tachycardic and short of breath. OBJECTIVE: Vital signs: Blood pressure 125/83, heart rate 82, respiratory 16, temperature 97.3 degrees, 97% on room air. Cardiovascular: Regular rate and rhythm. Pulmonary: Bilateral breath sounds clear to auscultation. Gastrointestinal: Abdomen is soft, nontender, nondistended. Bowel sounds are positive. LABORATORY DATA: White count 3, hemoglobin and hematocrit 14 and 42, platelets 164,000. His basic was okay. PROBLEM LIST: 1. Alcohol withdrawal syndrome. He is improving. I think a couple more days of ambulation, I think he will be okay, but right now, he is very deconditioned. I get a sense at baseline he is fairly healthy. 2. Relative hypoxia. We will do a home O2 evaluation. He does have tobacco use as a history but we will continue to follow. I am not sure at this point, but it is possible he has some underlying COPD, may need to get a scan of his lungs to see if there is anything that could be contributing to his relative hypoxia, especially if he qualifies for O2. DISPOSITION: Pending clinical status. I think if he is able to ambulate without difficulty, then should be able to get him home. He is not interested in participating in any further rehab at this point, and he has his own counseling apparently set up on his own. cc: Mello Hairston MD
[2019-03-18] MEDS ORDERED: LIBRIUM PO SCH (13:00)
[2019-03-19] MEDS: ATIVAN IV PRN ×4 (00:22→21:20)
[2019-03-19] MEDS: PRILOSEC PO SCH (06:27)
[2019-03-19 06:44] LABS: AGAP 14; ALB/GLOB RATIO 1.4; ALBUMIN 4.4 g/dL (3.5-5.0); ALKALINE PHOSPHATASE 66 U/L (32-122); BUN 9 mg/dL (8-22); CALCIUM 9.5 mg/dL (8.8-10.2); CHLORIDE 102 mmol/L (98-107); COSMO 279; CREATININE 0.6 mg/dL (0.7-1.2); ESTIMATED GFR > 60; GLUCOSE 110 mg/dL (70-104); GOT 25 U/L (10-34); GPT 27 U/L (10-44); POTASSIUM 3.4 mmol/L (3.5-5.1); SODIUM 140 mmol/L (136-145); TCO2 24 mmol/L (25-35); TOTAL BILIRUBIN 0.79 mg/dL (0.20-1.00); TOTAL PROTEIN 7.5 g/dL (6.3-8.3)
[2019-03-19] MEDS: VITAMIN B-1 PO SCH (08:59)
[2019-03-19] MEDS: FOLIC ACID PO SCH (08:59)
[2019-03-19] MEDS: LIBRIUM PO SCH ×3 (08:59→20:59)
[2019-03-19] MEDS: THERA M PLUS PO SCH (08:59)
[2019-03-19] MEDS ORDERED: KLOR-CON PO ONE (09:03)
--- NOTE | 2019-03-19 17:14 | PROGRESS NOTE ---
DATE: 03/19/2019 SUBJECTIVE: Patient has no major complaints. He really wants to go home. OBJECTIVE: Vital Signs: Blood pressure is stable at 100/61, heart rate 85, respiratory rate 20, temperature 97.6 degrees. Cardiovascular: Regular rate and rhythm. Pulmonary: Bilateral breath sounds clear to auscultation. Gastrointestinal: Soft, nontender, nondistended. Bowel sounds are positive. LABORATORY DATA: Potassium is 3.4 today. PROBLEM LIST: 1. Alcohol withdrawal syndrome. He is better and better every day. He still has some confusion, and we will continue to monitor. 2. Hypoxia. He is stable. He did not qualify for home oxygen unfortunately and advised on tobacco abuse. 3. Hypokalemia. We will supplement and follow. DISPOSITION: Daughter has arranged for inpatient rehabilitation set up tomorrow. She is coming to get him in the morning to transfer him there, so we will work on that. cc: Mello Hairston MD
[2019-03-20 05:05] VITALS: BP 94/55
[2019-03-20] MEDS: PRILOSEC PO SCH (06:33)
--- NOTE | 2019-03-20 08:49 | PROGRESS NOTE ---
DATE: 03/20/2019 ADDENDUM: I did write him for 25 Librium, 25 mg to take t.i.d. p.r.n. His daughter was there to pick him up and he is ready go. Please see discharge summary done by Dr. Hairston. cc: Maximus Olmstead MD
== END 2019-03-20 08:34 | disposition home or self-care (01) | DRG 897 ==
LOC: ED 14:59 → EDIPHOLD 14:59 → OBSVTOIN 18:11 → SUATTDRO 18:11 → ICU 18:45 → 2N 03-16 16:12 → 3N 03-18 16:45
PROVIDERS: ATTEND Emergency Medicine

== ENCOUNTER 2019-05-20 14:55 | Inpatient (IN) ==
[2019-05-20] MEDS ORDERED: ATIVAN IV ONE (15:20)
--- NOTE | 2019-05-20 15:30 | PROVIDER DOCUMENTATION ---
HPI-Psychological Disorder - General Stated Complaint: seizure Time Seen by Provider: 05/20/19 15:05 Source: patient Allergies/Adverse Reactions: Patient Allergies Allergy/AdvReac Type Severity Reaction Status Date / Time No Known Allergies Allergy Verified 07/27/18 14:08 Home Medications: Home Medication List Medication Instructions Recorded Confirmed Last Taken Type Acamprosate Calcium 333 mg PO TID 05/20/19 05/20/19 Unknown History - History of Present Illness-Psych Nature of Presenting Problem: 48 YO M pmh for alcohol abuse presents with c/o seizure that occurred this morning. Mom found pt in bed and covered in blood so she called EMS. Seizure was not witnessed. Pt has hx of alcohol abuse and states last drink may have been 3 days ago. he was recently at [facility]. He also states he slit his wrist this morning. He is covered in blood. No active bleeding from wrist currently. Pt currently denies SI, but states he was trying to get his mom upset. Onset/Duration: reports: this morning Timing: reports: gone now Severity: reports: mild Situational problems related to:: reports: parent Psychiatric Complaints: reports: ingestion, suicidal ideation Substance Use: reports: alcohol Previous psych related hospitalizations?: No Patient arrived by:: EMS called by spouse/family Similar Symptoms Previously?: Yes - Suicidal Ideation Suicide Risk Assessment: male sex, depressed, prior attempt, drug or ETOH abuse Clinician's estimation of suicide risk?: high risk Suicidal Attempt Method: reports: Stabbing/Cutting Review of Systems - Adult - REVIEW OF SYSTEMS - ADULT Constitutional: denies: chills, fever Eyes: reports: no symptoms reported Ears, Nose, Mouth & Throat: reports: other (tongue swelling and lacerations) Cardiovascular: reports: no symptoms reported Respiratory: reports: no symptoms reported Gastrointestinal: reports: no symptoms reported Genitourinary: reports: no symptoms reported Musculoskeletal: reports: no symptoms reported Integumentary: reports: no symptoms reported Neurological: reports: no symptoms reported Psychiatric: reports: see HPI, alcohol/drug dependence Past History - Adult - PAST MEDICAL HISTORY-ADULT Review of Records: reports: Old Records Reviewed Major Childhood Illnesses: reports: denies history Cardiovascular: reports: A-Fib, arrhythmia (SVT with ablation) Respiratory: reports: denies history Gastrointestinal: reports: denies history Obstetrical/Gynecological: reports: denies history Genitourinary: reports: denies history Musculoskeletal: reports: denies history Neurological: reports: denies history, Seizures/Epilepsy (with etoh withdrawl) Psychiatric: reports: anxiety, depression Endocrine/Immune: reports: denies history Other Conditions: reports: denies history - PRIOR SURGERIES/PROCEDURES Surgical/Procedure History: reports: hernia repair, other (ablation) - IMMUNIZATION STATUS Childhood Immunizations: See Nurse Assessment Flu Vaccine: See Nurse Assessment - FAMILY HISTORY Family History: reviewed, not pertinent - SOCIAL HISTORY Substance Use: alcohol Alcohol Use Frequency: every day Living Situation: family Physical Exam-Psych Focus - Physical Exam-Psych Initial Vital Signs Reviewed: Yes Appearance: other (still confused, does not know the date and time. moderate tongue swelling and lacerations) Neurological: normal mood/affect, calm Behavior/Eye Contact/Speech: cooperative, good eye contact Thoughts/Hallucinations: no apparent hallucination HENMT: normocephalic/atraumatic, other (swelling of anterior tongue) Neck: supple Respiratory: lungs clear, normal breath sounds Cardiovascular: tachycardia Abdominal Exam: non tender, soft. negative: distended, guarding, rigid Extremity: other (1.5 cm laceration to right wrist. Moderate shaking on exam) Integumentary: laceration(s) (dried blood on chest and abdomen) Progress - PLAN OF CARE/RESULTS Progress/Plan/Lab Results: Vital Signs - 8 hr 05/20/19 15:08 05/20/19 17:00 Temperature 98.3 F Pulse Rate 128 H 122 H Respiratory Rate 19 20 Blood Pressure 151/98 O2 Sat by Pulse Oximetry 92 L 94 L Laboratory Results - last 24 hr 05/20/19 05/20/19 05/20/19 15:30 15:30 15:30 WBC Cancelled RBC Cancelled Hgb Cancelled Hct Cancelled MCV Cancelled MCH Cancelled MCHC Cancelled RDW Std Deviation Cancelled Plt Count Cancelled MPV Cancelled Immature Gran % (Auto) Cancelled Neut % (Auto) Cancelled Lymph % (Auto) Cancelled Luce % (Auto) Cancelled Eos % (Auto) Cancelled Baso % (Auto) Cancelled Immature Gran # (Auto) Cancelled Neut # (Auto) Cancelled Lymph # (Auto) Cancelled Luce # (Auto) Cancelled Eos # (Auto) Cancelled Baso # (Auto) Cancelled Corrected WBC (Man) Cancelled Sodium Potassium Chloride Carbon Dioxide Anion Gap BUN Creatinine BUN/Creatinine Ratio Glucose Calculated Osmolality Calcium Total Bilirubin AST ALT Alkaline Phosphatase Total Protein Albumin Globulin Albumin/Globulin Ratio Urine Source CLEAN CATCH Urine Color YELLOW Urine Turbidity CLEAR Urine pH 6.0 Ur Specific [place] 1.020 Urine Protein 100 A Ur Glucose (Stick) 300 A Ur Ketones (Stick) 20 A Urine Blood SMALL A Urine Nitrite NEGATIVE Urine Bilirubin NEGATIVE Urobilinogen Dipstick NORMAL Urine Leukocytes NEGATIVE Urine WBC (Auto) <10 Urine RBC (Auto) <10 U Epithel Cells (Auto) <10 Urine Bacteria (Auto) NEGATIVE Salicylates Urine Opiates Screen NONE DETECTED Ur Oxycodone Screen NONE DETECTED Ur Methadone, Qual PRESUMPTIVE POSITIVE A Acetaminophen Ur Barbiturates Screen NONE DETECTED Ur Phencyclidine Scrn NONE DETECTED Ur Amphetamines Screen NONE DETECTED U Benzodiazepines Scrn NONE DETECTED Urine Cocaine Screen NONE DETECTED U Cannabinoids Screen NONE DETECTED Plasma/Serum Ethyl Alc 05/20/19 05/20/19 05/20/19 16:51 16:51 16:51 WBC 10.34 RBC 4.73 Hgb 14.9 Hct 44.3 MCV 93.7 MCH 31.5 H MCHC 33.6 RDW Std Deviation 13.3 Plt Count 60 L MPV 10.9 H Immature Gran % (Auto) 0.2 Neut % (Auto) 91.5 H Lymph % (Auto) 1.5 L Luce % (Auto) 6.5 Eos % (Auto) 0.0 Baso % (Auto) 0.3 Immature Gran # (Auto) 0.02 Neut # (Auto) 9.47 H Lymph # (Auto) 0.15 L Luce # (Auto) 0.67 H Eos # (Auto) 0.00 Baso # (Auto) 0.03 Corrected WBC (Man) Sodium 135 L Potassium 3.8 Chloride 92 L Carbon Dioxide 22 L Anion Gap 21 BUN 11 Creatinine 0.5 L BUN/Creatinine Ratio 22 Glucose 203 H Calculated Osmolality 275 Calcium 9.0 Total Bilirubin 0.59 AST 50 H ALT 27 Alkaline Phosphatase 70 Total Protein 8.6 H Albumin 4.8 Globulin 3.8 Albumin/Globulin Ratio 1.3 Urine Source Urine Color Urine Turbidity Urine pH Ur Specific [place] Urine Protein Ur Glucose (Stick) Ur Ketones (Stick) Urine Blood Urine Nitrite Urine Bilirubin Urobilinogen Dipstick Urine Leukocytes Urine WBC (Auto) Urine RBC (Auto) U Epithel Cells (Auto) Urine Bacteria (Auto) Salicylates < 3.00 L Urine Opiates Screen Ur Oxycodone Screen Ur Methadone, Qual Acetaminophen < 1.2 L Ur Barbiturates Screen Ur Phencyclidine Scrn Ur Amphetamines Screen U Benzodiazepines Scrn Urine Cocaine Screen U Cannabinoids Screen Plasma/Serum Ethyl Alc Orders Category Date Time Status Cardiac Monitoring DIRECTED Care 05/20/19 15:[address] ABDOMEN/PELVIS W/O CONTRAST [CT] Stat Exams 05/20/19 17:[address] THORAX W/O CONTRAST [CT] Stat Exams 05/20/19 17:56 Ordered cxr [CHEST-1 VIEW] [RAD] Stat Exams 05/20/19 16:58 Completed ACETAMINOPHEN [TDM] Stat Lab 05/20/19 16:51 Completed ALCOHOL BLOOD Stat Lab 05/20/19 16:51 Completed CBC WITH ELECTRONIC DIFF [HEME] Stat Lab 05/20/19 16:51 Completed CBC WITH NO DIFF [HEME] Stat Lab 05/20/19 19:15 Uncollected COMPREHENSIVE METABOLIC PANEL [CHEM] Stat Lab 05/20/19 16:51 Completed SALICYLATES [TDM] Stat Lab 05/20/19 16:51 Completed URINALYSIS W/POSS RFLX CULT [URINALYSIS] Stat Lab 05/20/19 15:30 Completed URINE DRUG SCREEN Stat Lab 05/20/19 15:30 Completed 0.9% Sodium Chloride Inj [Ns] 1,000 ml Med 05/20/19 17:07 Discontinued IV 999 mls/hr 0.9% Sodium Chloride Inj [Ns] 1,000 ml Med 05/20/19 17:08 Discontinued IV 999 mls/hr 0.9% Sodium Chloride Inj [Ns] 80 ml Med 05/20/19 17:45 Active Midazolam [Versed] 100 mg IV As Directed mls/hr Cyanoacrylate Tissue Adhesive [Dermabond] Med 05/20/19 15:58 Discontinued 1 each TOP NOW ONE Etomidate [Amidate] Med 05/20/19 17:34 Discontinued 20 mg IV NOW ONE Etomidate [Amidate] Med 05/20/19 16:53 Discontinued 40 mg .ROUTE .STK-MED ONE Lorazepam [Ativan] Med 05/20/19 15:20 Discontinued 2 mg IV NOW ONE Methylprednisolone Sod Succ [Solu-Medrol] Med 05/20/19 18:21 Discontinued 125 mg IV NOW ONE Midazolam [Versed] Med 05/20/19 17:15 Discontinued 2 mg IV NOW ONE Midazolam [Versed] Med 05/20/19 17:06 Discontinued 5 mg .ROUTE .STK-MED ONE Propofol [Diprivan 1%] Med 05/20/19 17:15 Active 1,000 mg in 100 ml IV As Directed mls/hr Succinylcholine [Quelicin] Med 05/20/19 17:34 Discontinued 100 mg IV NOW ONE Succinylcholine [Quelicin] Med 05/20/19 16:53 Discontinued 200 mg .ROUTE .STK-MED ONE Thiamine 100 mg Med 05/20/19 18:31 Discontinued 0.9% Sodium Chloride Inj [Ns] 50 ml IV NOW Transfer/Admit Order [TRANSFER] Routine Transfer 05/20/19 18:40 Ordered Pt currently placed under [address] Chiu and Dr. Allen. Result Diagrams: 05/20/19 16:51 05/20/19 16:51 - REASSESSMENT Reassessment #1 Time Reassessed: 16:45 Status: worsening (pt with more significant tongue swelling. will need airway protection. anesthesiology consulted.) Reassessment #2 Time Reassessed: 17:37 Status: unchanged (pt with methadone in urine. hx of alcoholism. propafol for sedation, however pt still awake. will add versed drip.) Reassessment #3 Time Reassessed: 17:59 Status: unchanged (concerns for abd distension. will get scans of chest and abd. HR improving to 109) - XRAY 1 XRAY Study: Chest Impression: Normal, See EMR Report (HISTORY: post intubation TECHNIQUE: Chest single view COMPARISON: 03/13/2019 FINDINGS: The lungs are well expanded. A nasogastric tube overlies the esophagus and stomach. There is an endotracheal tube at the thoracic inlet. The heart is not enlarged. The vessels are not distended. There are no infiltrates. No effusion identified. IMPRESSION: Endotracheal tube is at the thoracic inlet. Electronically signed by Iftikhar Tracey 05/20/2019 5:31 PM) - CONSULTS/PCP/HOSPITALIST Notification #1 *Consult/PCP/Hospitalist*: Dr. Marshall Time Discussed: 17:35 Consult Disposition: Will see in ED (anesthesia contacted for difficult intubation) Departure - Departure Date of Disposition Decision: 05/20/19 Time of Disposition Decision: 19:00 DIAGNOSIS: Seizure, Mouth swelling, Suicidal ideation, Attempted suicide, Tachycardia, Alcohol withdrawal Disposition: ADMITTED INPATIENT 09 Certified Medical Emergency: Emergent Condition: Stable Referrals and Follow-Ups: None,PCP [Primary Care Provider] - Attestation - Physician/ ROGERS Attestation The physician spent face to face time with patient:: Yes Advanced Practice Provider documentation review:: Supervising physician onsite and consulted in the evaluation and care of this patient. The physician did have a face to face encounter with the patient.
[2019-05-20] MEDS ORDERED: DERMABOND TOP ONE (15:58)
[2019-05-20 16:23] LABS: URINE SOURCE CLEAN CATCH
[2019-05-20 16:33] LABS: UR AMPHETAMINES QUAL NONE DETECTED (NONE DETECT); UR BARBITUATES QUAL NONE DETECTED (NONE DETECT); UR BENZODIAZEPIN QUAL NONE DETECTED (NONE DETECT); UR CANNABINOIDS QUAL NONE DETECTED (NONE DETECT); UR COCAINE QUAL NONE DETECTED (NONE DETECT); UR METHADONE QUAL PRESUMPTIVE POSITIVE (NONE DETECT); UR OPIATES QUAL NONE DETECTED (NONE DETECT); UR OXYCODONE QUAL NONE DETECTED (NONE DETECT); UR PCP QUAL NONE DETECTED (NONE DETECT)
[2019-05-20 16:39] LABS: BILIRUBIN URINE NEGATIVE (NEGATIVE); BLOOD URINE SMALL (NEGATIVE); COLOR YELLOW; GLUCOSE URINE 300 mg/dL (NEGATIVE); KETONE URINE 20 mg/dL (NEGATIVE); LEUKOCYTES URINE NEGATIVE (NEGATIVE); NITRITE URINE NEGATIVE (NEGATIVE); PROTEIN URINE 100 mg/dL (NEGATIVE); TURBIDITY URINE CLEAR (CLEAR); UROBILINOGEN URINE NORMAL (NORMAL)
[2019-05-20 16:42] LABS: UR EPITHELIAL CELLS <10 /HPF (<10); URINE BACTERIA NEGATIVE /HPF; URINE RBC <10 /HPF (<10); URINE WBC <10 /HPF (<10)
[2019-05-20] MEDS ORDERED: QUELICIN ONE (16:53)
[2019-05-20] MEDS ORDERED: AMIDATE ONE (16:53)
[2019-05-20] MEDS ORDERED: VERSED IV ONE ×2 (17:02→17:15)
[2019-05-20] MEDS ORDERED: VERSED ONE (17:06)
[2019-05-20 17:07] LABS: BASO# 0.03 X1000 (0.0-0.2); BASO% 0.3 % (0.0-0.8); HEMATOCRIT 44.3 % (42.0-52.0); HEMOGLOBIN 14.9 g/dL (14.0-18.0); IMM GRAN# 0.02 X1000 (0.0-0.04); IMM GRAN% 0.2 % (0.0-0.5); LYMPH# 0.15 X1000 (1.2-3.4); LYMPH% 1.5 % (20.5-51.1); MCH 31.5 PG (27-31); MCHC 33.6 g/dL (33-37); MCV 93.7 FL (81-99); MONO# 0.67 X1000 (0.11-0.59); MONO% 6.5 % (1.7-9.3); MPV 10.9 FL (7.4-10.4); NEUT# 9.47 X1000 (1.4-6.5); NEUT% 91.5 % (42.2-75.2); PLT 60 X1000 (130-400); RBC 4.73 XMIL (4.7-6.1); RDW 13.3 % (11.5-14.5); WBC 10.34 X1000 (4.8-10.8)
[2019-05-20] MEDS ORDERED: NS 1,000 ML IV ONE ×2 (17:07→17:08)
[2019-05-20] MEDS: DIPRIVAN 1% 1,000 MG/100 ML BOTTLE IV SCH (17:15)
--- NOTE | 2019-05-20 17:33 | Diag Imaging Result Doc PS360 ---
EXAM: CHEST-1 VIEW HISTORY: post intubation TECHNIQUE: Chest single view COMPARISON: 03/13/2019 FINDINGS: The lungs are well expanded. A nasogastric tube overlies the esophagus and stomach. There is an endotracheal tube at the thoracic inlet. The heart is not enlarged. The vessels are not distended. There are no infiltrates. No effusion identified. IMPRESSION: Endotracheal tube is at the thoracic inlet. Electronically signed by Iftikhar Tracey 05/20/2019 5:31 PM
[2019-05-20] MEDS ORDERED: AMIDATE IV ONE (17:34)
[2019-05-20] MEDS ORDERED: QUELICIN IV ONE (17:34)
[2019-05-20] MEDS ORDERED: VERSED 100 MG in NS 80 ML IV SCH (17:45)
[2019-05-20 17:55] LABS: AGAP 21; ALB/GLOB RATIO 1.3; ALBUMIN 4.8 g/dL (3.5-5.0); ALKALINE PHOSPHATASE 70 U/L (32-122); BUN 11 mg/dL (8-22); CHLORIDE 92 mmol/L (98-107); COSMO 275; CREATININE 0.5 mg/dL (0.7-1.2); GLUCOSE 203 mg/dL (70-104); GOT 50 U/L (10-34); GPT 27 U/L (10-44); POTASSIUM 3.8 mmol/L (3.5-5.1); SODIUM 135 mmol/L (136-145); TCO2 22 mmol/L (25-35); TOTAL BILIRUBIN 0.59 mg/dL (0.20-1.00); TOTAL PROTEIN 8.6 g/dL (6.3-8.3)
[2019-05-20 18:08] LABS: ACETAMINOPHEN < 1.2 ug/mL (10-30); SALICYLATES < 3.00 mg/dL (3-10)
[2019-05-20] MEDS ORDERED: SOLU-MEDROL IV ONE (18:21)
[2019-05-20] MEDS ORDERED: THIAMINE 100 MG in NS 50 ML IV ONE (18:31)
--- NOTE | 2019-05-20 19:36 | HISTORY AND PHYSICAL ---
He is a 48-year-old gentleman who came in from home. History somewhat limited because of patient intubated, sedated now but also he is going through alcohol withdrawal but I think this is sister- in-law but reportedly he had a seizure this morning. He stopped alcohol. He has an alcohol abuse history. He was seen in February for the same thing and discharged on the . He was here for about 9 days. He was discharged. He went to [facility] apparently in [place] and then left in less than 24 hours. He was found this morning. Mom found patient in bed covered in blood. Seizure was not witnessed. Reportedly had his last drink 3 days ago but he reportedly also tried to kill himself and slit his wrists. He states he was not suicidal. He was trying to get his mom upset. During his monitoring in the ER, I am not sure if he had another seizure but he had worsening tongue swelling. This was around 5 p.m. and he was intubated for airway protection. Anesthesia was consulted. He was on methadone, propofol and Versed. PAST MEDICAL HISTORY: 1. Now according to his family member there was history of alcohol abuse but none currently . 2. DJD C5-C6. 3. Seizure disorder associated with withdrawal. 4. SVT which was also possibly associated with withdrawal. PAST SURGICAL HISTORY: Right inguinal hernia repair. SOCIAL HISTORY: Previously it has been descried he drinks a liter of vodka a day. 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 He has never been able to completely stop drinking. FAMILY HISTORY: Prostate cancer and lung cancer in the father. Mother healthy who he is living with. ALLERGIES: No known drug allergies. MEDICATION: Is listed that he is on acamprosate which was started today I do not think he had been taking it I guess. REVIEW OF SYSTEMS: Really unobtainable. PHYSICAL EXAM: Blood pressure is 151/98, heart rate of 122, respiratory rate 20, temperature 98.3 degrees, 94% on 40%. GENERAL: Well-developed male in no acute distress. HEENT: Head was normocephalic, atraumatic. Pupils equal, round, reactive to light. Extraocular movements were intact. He had moist mucous membranes . NECK: Was supple. CARDIOVASCULAR: Was regular rate and rhythm. No murmurs, gallops, or rubs. He was tachyarrhythmic. PULMONARY: Clear to auscultation. GI: Soft, nontender, nondistended. Bowel sounds are positive. NEURO: Nonfocal. He is still awake despite a Versed drip and propofol and does follow simple plans. Pupils equal, round, reactive. LABORATORY DATA: White count is 10, hemoglobin and hematocrit 14, 44, platelets of 60,000. Sugars up to 203, which I do not think he has had diabetic issues before. Is positive for methadone. His alcohol level was negative. PROBLEM LIST: This is a 48-year-old male with history of alcohol abuse who presents with an alcohol withdrawal seizure and now respiratory failure. 1. Alcohol intoxication. We will continue Ativan, banana bag and continue to follow closely. 2. Seizure, likely just purely related to alcohol abuse. We will continue to monitor closely. I have not started any seizure medication but he is on continuous benzodiazepines and we will continue to monitor. 3. Thrombocytopenia. We will continue to monitor. He does have bleeding associated with his tongue laceration so may go ahead and give him a dose of platelets and follow. 4. History of supraventricular tachycardia but we do not have any evidence of tachyarrhythmia at this point. We will continue to monitor. 5. Respiratory failure related to tongue swelling and edema. We will continue to monitor closely. Pulmonary consulted about weaning off the ventilator once we feel his airways protected. cc: Mello Hairston MD
[2019-05-20 20:32] LABS: HEMATOCRIT 40.9 % (42.0-52.0); HEMOGLOBIN 13.6 g/dL (14.0-18.0); MCH 31.6 PG (27-31); MCHC 33.3 g/dL (33-37); MCV 94.9 FL (81-99); MPV 10.8 FL (7.4-10.4); RBC 4.31 XMIL (4.7-6.1); RDW 13.4 % (11.5-14.5); WBC 7.78 X1000 (4.8-10.8)
[2019-05-20] MEDS ORDERED: ZOFRAN IV PRN (21:29)
[2019-05-20] MEDS ORDERED: SODIUM CHLORIDE 0.9% INJ SCH (21:29)
--- NOTE | 2019-05-20 21:32 | Diag Imaging Result Doc PS360 ---
EXAM: CT HEAD W/O CONTRAST HISTORY: seizure TECHNIQUE: CT head without contrast COMPARISON: None. FINDINGS: No parenchymal hemorrhage. No epidural or subdural hematoma. No subarachnoid hemorrhage. There are chronic microvascular ischemic changes. No mass identified on this noncontrasted exam. No hydrocephalus. No skull fracture. IMPRESSION: 1.No hemorrhage 2.Chronic microvascular ischemic changes This exam was performed using automated exposure control, adjustment of mA or kV according to patient size, and/or use of iterative reconstruction technique. Electronically signed by Iftikhar Tracey 05/20/2019 9:30 PM
--- NOTE | 2019-05-20 21:36 | Diag Imaging Result Doc PS360 ---
EXAM: CT THORAX W/O CONTRAST HISTORY: possible trauma TECHNIQUE: CT chest without contrast COMPARISON: None. FINDINGS: No pneumothoraces. There are air bronchograms in the right lower lobe and small air bronchograms in the left lower lobe. Tiny effusions. The heart is mildly prominent. Calcified pretracheal lymph node and right lung granuloma. No displaced fracture. IMPRESSION: Lower lobe pneumonia with trace pleural fluid and basilar atelectasis This exam was performed using automated exposure control, adjustment of mA or kV according to patient size, and/or use of iterative reconstruction technique. Electronically signed by Iftikhar Tracey 05/20/2019 9:33 PM
--- NOTE | 2019-05-20 21:40 | Diag Imaging Result Doc PS360 ---
EXAM: CT ABDOMEN/PELVIS W/O CONTRAST HISTORY: abd distension TECHNIQUE: CT abdomen and pelvis without contrast COMPARISON: None. FINDINGS: No calcified gallstones. No focal hepatic abnormality identified on this noncontrasted exam. A nasogastric tube enters the stomach. The spleen is not enlarged. No inflammation about the pancreas. Normal adrenal glands. No renal stones. No hydronephrosis. Normal aorta. The colon is distended with air. Small bowel loops are normal caliber. No abscess. No ascites. There is a Quiroga catheter in the urinary bladder. IMPRESSION: No acute abnormality This exam was performed using automated exposure control, adjustment of mA or kV according to patient size, and/or use of iterative reconstruction technique. Electronically signed by Iftikhar Tracey 05/20/2019 9:38 PM
[2019-05-20] MEDS: PROTONIX IV SCH (22:17)
[2019-05-20] MEDS: NS 1,000 ML IV SCH (22:18)
[2019-05-20] MEDS: POTASSIUM CHLORIDE 20 MEQ, MAGNESIUM SULFATE 2 GM, THIAMINE 100 MG, FOLIC ACID 1 MG, M.... IV SCH ×6 (22:18)
[2019-05-20] MEDS: ATIVAN 20 MG in NS 190 ML IV SCH (22:27)
[2019-05-20] MEDS: ZOSYN 3.375 GM in NS 50 ML IV SCH (22:46)
[2019-05-20] MEDS: DUONEB (A & A) INH SCH (23:14)
[2019-05-21] MEDS: NS 1,000 ML IV SCH ×3 (01:17→22:21)
[2019-05-21] MEDS: DIPRIVAN 1% 1,000 MG/100 ML BOTTLE IV SCH ×8 (01:35→23:19)
[2019-05-21] MEDS: DUONEB (A & A) INH SCH ×6 (03:17→22:48)
[2019-05-21 04:23] LABS: ALLEN TEST YES; BE 3.8 mmoll (-3.0-3.0); BLOOD TYPE ARTERIAL; HCO3-(ACT) 27.9 mmoll (20.0-26.0); METHB 1.3 % (0.0-1.5); O2(CT) 18.2 mL/dL (15.0-23.0); O2HB 96.7 % (95.0-99.0); PCO2(98.6) 30 mmHg (35-45); PO2(98.6) 173 mmHg (60-100); SAMPLE BLOOD; SAO2 98.7 % (95.0-100.0); SRATE 20 BPM; THB 13.1 g/dL (11.5-17.4); TVOL 500 mL; pH(98.6) 7.54 (7.35-7.45)
[2019-05-21 04:25] LABS: MODALITY VENTILATOR
[2019-05-21] MEDS: ZOSYN 3.375 GM in NS 50 ML IV SCH ×4 (04:32→23:20)
[2019-05-21 06:08] LABS: HEMOGLOBIN 12.7 g/dL (14.0-18.0); LYMPH% 3.4 % (20.5-51.1); MCHC 33.4 g/dL (33-37); MCV 95.7 FL (81-99); MONO# 0.24 X1000 (0.11-0.59); MONO% 4.1 % (1.7-9.3); MPV 11.4 FL (7.4-10.4); NEUT# 5.37 X1000 (1.4-6.5); NEUT% 92.5 % (42.2-75.2); PLT 47 X1000 (130-400); RBC 3.97 XMIL (4.7-6.1); RDW 13.3 % (11.5-14.5); WBC 5.81 X1000 (4.8-10.8)
[2019-05-21 06:18] LABS: MAGNESIUM 2.6 mg/dL (1.5-2.7); PHOSPHORUS 1.8 mg/dL (2.7-4.5)
[2019-05-21 06:36] LABS: AGAP 15; ALB/GLOB RATIO 1.4; ALBUMIN 4.2 g/dL (3.5-5.0); ALKALINE PHOSPHATASE 56 U/L (32-122); BUN 9 mg/dL (8-22); CALCIUM 7.7 mg/dL (8.8-10.2); CHLORIDE 99 mmol/L (98-107); COSMO 277; CREATININE 0.6 mg/dL (0.7-1.2); ESTIMATED GFR > 60; GLUCOSE 204 mg/dL (70-104); GOT 40 U/L (10-34); GPT 20 U/L (10-44); SODIUM 136 mmol/L (136-145); TCO2 22 mmol/L (25-35); TOTAL BILIRUBIN 0.85 mg/dL (0.20-1.00); TOTAL PROTEIN 7.1 g/dL (6.3-8.3)
--- NOTE | 2019-05-21 07:21 | Diag Imaging Result Doc PS360 ---
EXAM: CHEST-PORTABLE INDICATION: intubated TECHNIQUE: One view COMPARISON: 05/20/2019 FINDINGS: Support tubes and lines are in stable positions. There is now mild subsegmental atelectasis at the lung bases. No new consolidation is identified, otherwise. Cardiac silhouette is stable. IMPRESSION: Development of mild subsegmental atelectasis at the lung bases. Stable chest, otherwise. Electronically signed by Amanuel Urias 05/21/2019 7:19 AM
[2019-05-21] MEDS: ATIVAN 20 MG in NS 190 ML IV SCH (07:57)
[2019-05-21] MEDS ORDERED: POTASSIUM PHOSPHATE 40 MEQ in NS 250 ML IV ONE (17:08)
--- NOTE | 2019-05-21 18:21 | PROGRESS NOTE ---
DATE: 05/21/2019 SUBJECTIVE: Patient intubated and sedated. OBJECTIVE: Blood pressure 100/66, heart rate of 107, respiratory rate of 10, and temperature 97.2 degrees.Cardiovascular: Tachy. Pulmonary: Diminished bases at rhonchi and wheezing. GI: Soft. Nontender. Nondistended. Bowel sounds are positive. His tongue really does look very injected, swollen, and bloody. LABORATORY DATA: His white count is 5, hemoglobin and hematocrit 12 and 38, and platelets down to 47,000. A pH 7.54, pCO2 38, PO2 7.73, potassium of 3, glucose 204, which I do not think he completely has treatment for that. ASSESSMENT AND PLAN: 1. In any case, acute respiratory failure due to multiple other issues, airway protection, but it does not look like he has got pneumonia. Ventilator is being managed by Dr. Coyle. Greatly appreciate his input. 2. Seizure, likely related to alcohol withdrawal. He is currently on continuous benzodiazepines. Seizures are usually associated with alcohol withdrawal so we will continue to follow. 3. Alcohol withdrawal syndrome. He is on Ativan and propofol. We will convert to Librium once safe enough to take him off the ventilator. 4. Left lower lobe pneumonia. He has been initiated on antibiotics. He is on breathing treatments. We will add Mucomyst for pulmonary toilet and monitor. 5. Thrombocytopenia likely related to his alcohol use and bone marrow suppression. We will continue to follow closely. Avoid medications that would potentially lower his platelet count. 6. I appreciate Dr. Coyle has consulted ENT, which I was considering before just to make sure that his airway was stable with the amount of lingual bleeding he had. He may benefit from platelets because he seems to be having some oozing. He has had somewhat of a drop in his blood count. We will supplement his potassium and his phosphorus as well. cc: Mello Hairston MD
[2019-05-21] MEDS: MUCOMYST 20% INH SCH (19:30)
[2019-05-21] MEDS: POTASSIUM CHLORIDE 20 MEQ, MAGNESIUM SULFATE 2 GM, THIAMINE 100 MG, FOLIC ACID 1 MG, M.... IV SCH ×6 (21:11)
[2019-05-21] MEDS: PROTONIX IV SCH (21:11)
--- NOTE | 2019-05-21 21:25 | CONSULTATION ---
DATE OF CONSULTATION: 05/21/2019 REASON FOR CONSULTATION: A 48-year-old gentleman who was going through alcohol withdrawal. While in the emergency room he had a seizure and bit his tongue. He had worsening tongue swelling. He was intubated for airway protection. I was asked to see him in regard to the injury to the tongue. PAST MEDICAL HISTORY: Alcohol withdrawal, seizure disorder associated with withdrawal. PAST SURGICAL HISTORY: Right inguinal hernia repair. PHYSICAL EXAMINATION: General: The patient is intubated, sedated and unresponsive to commands. Oral cavity, oropharynx: The anterior tongue is swollen. There are several small lacerations, especially on the right side. The undersurface of the tongue is also bruised. There is no significant laceration to the tongue muscle that was visualized. Most of the swelling is confined to the anterior tongue and floor of mouth. The posterior tongue appears to be more normal. The palate exam is difficult, but the uvula looks normal and the palate is normal, without swelling. IMPRESSION AND PLAN: Seizure with traumatic tongue injury and swelling of the anterior tongue and floor of mouth. At this point there is nothing that needs surgical repair. The tongue swelling should resolve in the next day or so. At this point he does not need any surgical treatment. We will discuss with Dr. Hairston. cc: Shahbaz Narayan MD
--- NOTE | 2019-05-21 22:10 | PULMONOLOGY CONSULTATION ---
DATE: 05/21/2019 REQUESTING PHYSICIAN: Dr. John aHirston. REASON FOR CONSULTATION: Respiratory failure. HISTORY OF PRESENT ILLNESS: Mr. Massey is a 48-year-old white male with history of alcohol abuse with recent attempted rehab stay, who was found in his bed covered in blood. No definite seizure was identified. There was some question of possible suicidal ideation. The patient presented to the emergency room and had a seizure with tongue injury. It is likely that he bit his tongue during the seizure. He was intubated for airway protection. He underwent a CT scan of the brain which revealed chronic microvascular ischemic changes, otherwise no acute change. He underwent CT scan of the abdomen and pelvis. No focal abnormality was identified. He underwent a CT scan of the thorax, which revealed bilateral pneumonias, right greater than left. PAST MEDICAL HISTORY: 1. Daily alcohol use. 2. History of seizure disorder with alcohol withdrawal. 3. History of SVT. 4. Degenerative joint disease of the cervical spine. FAMILY HISTORY: Positive for lung cancer and prostate cancer. REVIEW OF SYSTEMS: Limited. PHYSICAL EXAMINATION: General: Reveals a disheveled white male who appears older than his stated age. Vital signs: BP 89/63, heart rate 98, respiratory rate 17, oxygen saturation 100% on mechanical ventilation. HEENT: Pupils are equal and reactive. Oropharynx reveals copious amounts of blood. It is difficult to examine the tongue due to the amount of blood. It is swollen. Neck: Supple. Chest: Reveals coarse rhonchi bilaterally. Cardiac Exam: S1, S2. Abdomen: Soft. Extremities: Without edema. LABORATORIES: Arterial blood gas reveals pH 7.54, pCO2 of 30, pO2 of 173. IMPRESSION: A 48-year-old with: 1. Acute hypoxemic respiratory failure. 2. Pneumonia. 3. Seizure disorder. 4. Lingual injury. 5. Alcohol abuse. 6. Possible suicidal ideation. PLAN: 1. Continue full ventilatory support. 2. Obtain sputum for C and S. 3. Ask ENT to evaluate the injured tongue. 4. Initiate broad-spectrum antibiotics. 5. Consider platelets if his platelets continue to decline. 6. Consider psychiatry evaluation pending suicide screen when he has been successfully extubated. 7. Follow for alcohol withdrawal syndrome. cc: Mark Coyle MD
[2019-05-22] MEDS: DIPRIVAN 1% 1,000 MG/100 ML BOTTLE IV SCH ×3 (01:43→08:21)
[2019-05-22] MEDS: DUONEB (A & A) INH SCH ×6 (03:17→23:15)
[2019-05-22] MEDS: ATIVAN 20 MG in NS 190 ML IV SCH ×2 (03:58→18:40)
[2019-05-22] MEDS: ZOSYN 3.375 GM in NS 50 ML IV SCH ×4 (04:18→22:08)
[2019-05-22 04:25] LABS: ALLEN TEST YES; BE 1.3 mmoll (-3.0-3.0); BLOOD TYPE ARTERIAL; HCO3-(ACT) 25.9 mmoll (20.0-26.0); METHB 1.1 % (0.0-1.5); O2(CT) 16.8 mL/dL (15.0-23.0); O2HB 96.9 % (95.0-99.0); PCO2(98.6) 35 mmHg (35-45); PO2(98.6) 127 mmHg (60-100); SAMPLE BLOOD; SAO2 99.5 % (95.0-100.0); SRATE 10 BPM; THB 12.2 g/dL (11.5-17.4); TVOL 650 mL; pH(98.6) 7.46 (7.35-7.45)
[2019-05-22 04:30] LABS: MODALITY VENTILATOR
--- NOTE | 2019-05-22 06:57 | Diag Imaging Result Doc PS360 ---
CHEST-PORTABLE - 05/22/2019 INDICATION: ventilator patient COMPARISON: 05/21/2019 FINDINGS: Support tubes are stable and in good position. Lung volumes are lower. There is increasing platelike atelectasis in the right lung base. There is stable significant atelectasis or infiltrate in the left lower lobe. Trace pleural effusions. Heart size remains top normal. IMPRESSION: Lower lung volumes with increasing platelike atelectasis in the right lung base. Electronically signed by Nelson Morgan 05/22/2019 6:54 AM
[2019-05-22 07:10] LABS: AGAP 13; BUN 8 mg/dL (8-22); CHLORIDE 106 mmol/L (98-107); COSMO 285; CREATININE 0.7 mg/dL (0.7-1.2); ESTIMATED GFR > 60; GLUCOSE 126 mg/dL (70-104); MAGNESIUM 3.2 mg/dL (1.5-2.7); PHOSPHORUS 3.2 mg/dL (2.7-4.5); POTASSIUM 2.9 mmol/L (3.5-5.1); SODIUM 143 mmol/L (136-145); TCO2 24 mmol/L (25-35)
[2019-05-22 07:12] LABS: BASO# 0.01 X1000 (0.0-0.2); BASO% 0.2 % (0.0-0.8); EOS# 0.07 X1000 (0.0-0.7); EOS% 1.1 % (0.0-10.0); HEMOGLOBIN 11.7 g/dL (14.0-18.0); LYMPH# 1.21 X1000 (1.2-3.4); LYMPH% 18.9 % (20.5-51.1); MCH 31.4 PG (27-31); MCHC 31.6 g/dL (33-37); MCV 99.2 FL (81-99); MONO# 0.72 X1000 (0.11-0.59); MONO% 11.3 % (1.7-9.3); MPV 12.5 FL (7.4-10.4); NEUT# 4.38 X1000 (1.4-6.5); NEUT% 68.5 % (42.2-75.2); PLT 54 X1000 (130-400); RBC 3.73 XMIL (4.7-6.1); RDW 14.4 % (11.5-14.5); WBC 6.39 X1000 (4.8-10.8)
[2019-05-22] MEDS: NS 1,000 ML IV SCH ×3 (07:39→22:09)
[2019-05-22] MEDS: MUCOMYST 20% INH SCH ×2 (08:01→19:15)
[2019-05-22] MEDS ORDERED: MISC. PHARMACY COMMUNICATION SCH ×2 (11:30→18:00)
[2019-05-22] MEDS ORDERED: M V I IV SCH (13:45)
[2019-05-22] MEDS ORDERED: FOLIC ACID IV SCH (13:45)
[2019-05-22] MEDS ORDERED: D5 NS IV SCH (13:45)
[2019-05-22] MEDS ORDERED: THIAMINE IV SCH (13:45)
[2019-05-22] MEDS ORDERED: DUONEB (A & A) INH PRN (13:52)
[2019-05-22 14:03] LABS: ALLEN TEST YES; BE 2.5 mmoll (-3.0-3.0); BLOOD TYPE ARTERIAL; HCO3-(ACT) 26.9 mmoll (20.0-26.0); METHB 0.7 % (0.0-1.5); O2(CT) 15.3 mL/dL (15.0-23.0); O2HB 96.4 % (95.0-99.0); PCO2(98.6) 37 mmHg (35-45); PO2(98.6) 87 mmHg (60-100); SAMPLE BLOOD; SAO2 98.6 % (95.0-100.0); THB 11.2 g/dL (11.5-17.4); pH(98.6) 7.46 (7.35-7.45)
[2019-05-22 14:04] LABS: MODALITY VENTILATOR
[2019-05-22] MEDS: M V I IV SCH (14:56)
[2019-05-22] MEDS: D5 NS IV SCH (14:56)
[2019-05-22] MEDS: THIAMINE IV SCH (14:56)
[2019-05-22] MEDS: FOLIC ACID IV SCH (14:56)
[2019-05-22] MEDS ORDERED: ATIVAN IV PRN (17:47)
[2019-05-22] MEDS: PHENOBARBITAL IV PRN (18:35)
--- NOTE | 2019-05-22 18:49 | PROGRESS NOTE ---
DATE: 05/22/2019 SUBJECTIVE: Patient has no major complaints. OBJECTIVE: Vital signs: Blood pressure is 123/63, heart rate of 94, respiratory rate of 16, temperature 98.3 degrees, 99% on 40%. Cardiovascular: Regular rate and rhythm. Pulmonary: Bilateral breath sounds clear to auscultation. Gastrointestinal: Soft, nontender, nondistended. Bowel sounds are positive. LABORATORY DATA: White count 6, hemoglobin and hematocrit 11 and 37, platelets 54,000. pH 7.46, pCO2 35, pO2 127. Potassium is 2.9. PROBLEM LIST: 1. Acute respiratory insufficiency failure due to obstructed airway related to tongue edema and swelling and bleeding. He is on the ventilator currently. ENT is following. He did not feel there is any surgical necessity at this time as far as suturing or evacuation. They are just going to kind of monitor for the time being. 2. Seizure in the setting of alcohol withdrawal. No further episodes, but he is on sedation. 3. Alcohol withdrawal syndrome. He is on Ativan. We will transition to Librium once he is stable. 4. Left lower lobe pneumonia. He is on antibiotics, breathing treatments. 5. Thrombocytopenia is stable. If he has further bleeding, we may need to consider a transfusion. I have not pursued that at this point. DISPOSITION: Difficult situation from extubation because we want to make sure he is extubated in a safe manner of course, and with his tongue swelling and potential altered mental status, we may have to continue on the ventilator for the next day or 2 until things stabilize from both those ends at the discretion of Dr. Coyle of course. cc: Mello Hairston MD
[2019-05-22] MEDS: PROTONIX IV SCH (22:08)
[2019-05-23] MEDS: ATIVAN 20 MG in NS 190 ML IV SCH (00:57)
[2019-05-23] MEDS: PHENOBARBITAL IV PRN ×2 (00:57→04:33)
[2019-05-23] MEDS: CLINIMIX E 4.25%-5% SOLUTION 1,000 ML IV SCH ×2 (00:59→14:09)
[2019-05-23] MEDS: DUONEB (A & A) INH SCH ×6 (03:20→23:25)
[2019-05-23] MEDS: ZOSYN 3.375 GM in NS 50 ML IV SCH ×4 (04:17→22:33)
[2019-05-23 04:30] LABS: ALLEN TEST YES; BE 6.8 mmoll (-3.0-3.0); BLOOD TYPE ARTERIAL; HCO3-(ACT) 30.2 mmoll (20.0-26.0); METHB 1.1 % (0.0-1.5); O2(CT) 18.2 mL/dL (15.0-23.0); O2HB 95.9 % (95.0-99.0); PCO2(98.6) 43 mmHg (35-45); PO2(98.6) 110 mmHg (60-100); SAMPLE BLOOD; SAO2 98.9 % (95.0-100.0); THB 13.4 g/dL (11.5-17.4); pH(98.6) 7.47 (7.35-7.45)
--- NOTE | 2019-05-23 04:30 | PULMONOLOGY PROGRESS NOTE ---
DATE: 05/23/2019 SUBJECTIVE: Propofol is on hold. The patient became arousable. He was followed for 2 hours earlier this morning, and subsequently extubated. He was agitated in the afternoon, but had no difficulty with respiration. OBJECTIVE: The patient has been afebrile for the last 24 hours. Blood pressure 137/65, heart rate 113, respiratory rate 25, and oxygen saturation 99% on 40% face mask.HEENT: Pupils are equal and reactive. Oropharynx appears clear, but difficult to evaluate tongue. Lungs: Chest reveals occasional rhonchi bilaterally. Cardiac: S1-S2. Abdomen: Soft. Extremities: Without edema. LABORATORIES: White blood count 6.39, hemoglobin 11.7, and platelet count 54,000. Sodium 143, potassium 2.9, chloride 106, bicarbonate 24, BUN 8, and creatinine 0.7. Chest x-ray on spontaneous breathing trial pH 7.46, pCO2 of 37, and PO2 of 87. Chest x-ray reveals shallow inspiration with infiltrate at the right base. IMPRESSION: A 48-year-old with the followin. Acute hypoxemic respiratory failure. 2. Aspiration pneumonia. 3. Alcohol abuse. 4. Seizure disorder. 5. Tongue injury associated with biting. 6. Possible suicidal ideation. PLAN: 1. Continue to monitor in the ICU. The patient likely is experiencing alcohol withdrawal syndrome. 2. Continue antibiotics for pneumonia. 3. Continue treatment for alcohol withdrawal. 4. Anticipate initiation of DVT prophylaxis tomorrow if he has no evidence of additional bleeding. 5. The patient will need a psychiatric evaluation, and possible referral for alcohol withdrawal at time of discharge. cc: Mark Coyle MD
[2019-05-23 04:32] LABS: MODALITY COOL AEROSOL
[2019-05-23 06:19] LABS: BASO# 0.05 X1000 (0.0-0.2); BASO% 0.7 % (0.0-0.8); EOS# 0.06 X1000 (0.0-0.7); EOS% 0.8 % (0.0-10.0); HEMATOCRIT 40.2 % (42.0-52.0); HEMOGLOBIN 12.7 g/dL (14.0-18.0); IMM GRAN# 0.02 X1000 (0.0-0.04); IMM GRAN% 0.3 % (0.0-0.5); LYMPH# 0.57 X1000 (1.2-3.4); MCH 31.2 PG (27-31); MCHC 31.6 g/dL (33-37); MCV 98.8 FL (81-99); MONO% 8.5 % (1.7-9.3); MPV 11.5 FL (7.4-10.4); NEUT% 81.7 % (42.2-75.2); PLT 75 X1000 (130-400); RBC 4.07 XMIL (4.7-6.1); RDW 13.6 % (11.5-14.5)
--- NOTE | 2019-05-23 06:28 | Diag Imaging Result Doc PS360 ---
EXAM: CHEST-PORTABLE HISTORY: dyspnea TECHNIQUE: Single view COMPARISON: 05/22/2019 FINDINGS: Slightly improved inspiratory effort. Atelectasis versus a tiny infiltrate remains in the left base. The endotracheal tube has been removed. Trace left pleural fluid. Borderline mildly prominent heart. The nasogastric tube has been pulled back and lies in the distal esophagus. It does not enter the stomach. IMPRESSION: Nasogastric tube is no longer within the stomach. This report was discussed with Ioana in the ICU on 05/23/2019 at 6:25 AM and was readback. Electronically signed by Iftikhar Tracey 05/23/2019 6:25 AM
[2019-05-23 06:50] LABS: AGAP 16; BUN 5 mg/dL (8-22); CALCIUM 8.7 mg/dL (8.8-10.2); CHLORIDE 99 mmol/L (98-107); COSMO 279; CREATININE 0.5 mg/dL (0.7-1.2); ESTIMATED GFR > 60; GLUCOSE 115 mg/dL (70-104); POTASSIUM 2.9 mmol/L (3.5-5.1); SODIUM 141 mmol/L (136-145); TCO2 26 mmol/L (25-35)
--- NOTE | 2019-05-23 06:59 | Diag Imaging Result Doc PS360 ---
EXAM: CHEST/ABD TUBE PLACEMENT HISTORY: NG advanced to correct position TECHNIQUE: Single view 6:42 AM COMPARISON: 5:36 AM FINDINGS: The nasogastric tube has been advanced. It now lies in good position curled within the stomach. Electronically signed by Iftikhar Tracey 05/23/2019 6:56 AM
[2019-05-23] MEDS: MUCOMYST 20% INH SCH ×2 (07:36→19:44)
[2019-05-23] MEDS: POTASSIUM CHLORIDE 20 MEQ/SWI 20 MEQ/100 ML IVPB IV SCH ×2 (11:51→13:15)
[2019-05-23] MEDS ORDERED: ATIVAN 20 MG in NS 190 ML IV SCH (12:00)
--- NOTE | 2019-05-23 12:48 | PROGRESS NOTE ---
DATE: 05/23/2019 SUBJECTIVE: Patient has no major complaints. OBJECTIVE: Blood pressure 106/74, heart rate of 107, respiratory rate 21, temperature 98.6 degrees and 100% on 3 L.Cardiovascular: Regular rate and rhythm. Pulmonary: Bilateral breath sounds. Clear to auscultation. GI: Soft, nontender, and nondistended. Bowel sounds are positive. LABORATORY DATA: White count 7, hemoglobin and hematocrit 12 and 40, and platelets 75,000. A pH 7.47, pCO2 43, PaO2 110, and potassium 2.9. PROBLEM LIST: 1. Acute respiratory insufficiency. He has been extubated. Appreciate Dr. Coyle's input. He is doing well. We will continue to follow. 2. Seizure. This is due to alcohol withdrawal. He is stable currently on Ativan. 3. Alcohol withdrawal syndrome. Again on Ativan. We will transition to Librium tomorrow. 4. Left lower lobe pneumonia. He is on Zosyn. This will be day 4. 5. Hypokalemia. We will continue to supplement and follow. DISPOSITION: 1. Pending his clinical status. 2. Thrombocytopenia. We will continue to monitor. He is slowly improving. If we do use anti DVT prophylaxis, then we need to do Arixtra. We will go from there. cc: Mello Hairston MD
[2019-05-23] MEDS: M V I IV SCH (15:15)
[2019-05-23] MEDS: THIAMINE IV SCH (15:15)
[2019-05-23] MEDS: FOLIC ACID IV SCH (15:15)
[2019-05-23] MEDS: D5 NS IV SCH (15:15)
--- NOTE | 2019-05-23 20:51 | PULMONOLOGY PROGRESS NOTE ---
DATE: 05/23/2019 SUBJECTIVE: The patient is somnolent. He is arousable. He will attempt to say good morning. He was given a few ice chips and could manage them appropriately. OBJECTIVE: Vital Signs: The patient has been afebrile for the last 24 hours. BP 111/76, heart rate 96, respiratory rate 20, oxygen saturation 100% on 2 L per nasal cannula. HEENT: Pupils are equal and reactive. Oropharynx appears clear. Neck: Supple. Chest: Reveals occasional rhonchi bilaterally. Cardiac: S1-S2. Abdomen: Soft. Extremities: Reveal trace edema. LABORATORIES: Chest x-ray reveals tiny infiltrate versus atelectasis left base with mildly prominent cardiac silhouette. Sputum cultures preliminary reveal normal mao. White blood count 7.10, hemoglobin 12.7, platelet count 75,000 and increasing. Arterial blood gas reveals a pH 7.47, pCO2 of 43, PO2 of 110. Sodium 141, potassium 2.9, chloride 99, bicarbonate 26, BUN 5, creatinine 0.5. IMPRESSION: A 48-year-old with 1. Alcohol abuse. 2. Seizures. 3. Aspiration pneumonia. 4. Acute hypoxemic respiratory failure. 5. Tongue injury without ongoing bleeding. 6. Possible suicidal ideation. PLAN: 1. Continue to monitor the patient in the ICU. He is receiving treatment for alcohol withdrawal syndrome . 2. Continue antibiotics. 3. Continue ice chips for oral hygiene. 4. Initiate DVT prophylaxis if platelets continue to improve. 5. The patient will need psychiatric evaluation in his future. cc: Mark Coyle MD
[2019-05-23] MEDS: PROTONIX IV SCH (20:57)
[2019-05-24] MEDS: PHENOBARBITAL IV PRN (02:30)
[2019-05-24] MEDS: DUONEB (A & A) INH SCH ×6 (03:20→23:30)
[2019-05-24] MEDS: ZOSYN 3.375 GM in NS 50 ML IV SCH ×4 (03:49→22:42)
[2019-05-24 04:40] LABS: ALLEN TEST YES; BE 4.3 mmoll (-3.0-3.0); BLOOD TYPE ARTERIAL; HCO3-(ACT) 28.2 mmoll (20.0-26.0); METHB 1.4 % (0.0-1.5); O2(CT) 23.6 mL/dL (15.0-23.0); O2HB 94.3 % (95.0-99.0); PCO2(98.6) 43 mmHg (35-45); PO2(98.6) 95 mmHg (60-100); SAMPLE BLOOD; SAO2 98.3 % (95.0-100.0); THB 17.8 g/dL (11.5-17.4); pH(98.6) 7.44 (7.35-7.45)
[2019-05-24 04:41] LABS: MODALITY CANNULA
[2019-05-24] MEDS: CLINIMIX E 4.25%-5% SOLUTION 1,000 ML IV SCH ×2 (05:08→16:08)
[2019-05-24 06:50] LABS: BASO# 0.04 X1000 (0.0-0.2); BASO% 0.6 % (0.0-0.8); EOS# 0.14 X1000 (0.0-0.7); EOS% 2.1 % (0.0-10.0); HEMATOCRIT 40.2 % (42.0-52.0); IMM GRAN# 0.02 X1000 (0.0-0.04); IMM GRAN% 0.3 % (0.0-0.5); LYMPH# 0.67 X1000 (1.2-3.4); LYMPH% 9.9 % (20.5-51.1); MCH 31.6 PG (27-31); MCHC 32.3 g/dL (33-37); MCV 97.6 FL (81-99); MONO# 0.87 X1000 (0.11-0.59); MONO% 12.8 % (1.7-9.3); MPV 11.3 FL (7.4-10.4); NEUT# 5.05 X1000 (1.4-6.5); NEUT% 74.3 % (42.2-75.2); PLT 111 X1000 (130-400); RBC 4.12 XMIL (4.7-6.1); RDW 13.3 % (11.5-14.5); WBC 6.79 X1000 (4.8-10.8)
[2019-05-24 07:05] LABS: AGAP 15; BUN 10 mg/dL (8-22); CALCIUM 8.9 mg/dL (8.8-10.2); CHLORIDE 96 mmol/L (98-107); COSMO 268; CREATININE 0.5 mg/dL (0.7-1.2); ESTIMATED GFR > 60; GLUCOSE 105 mg/dL (70-104); POTASSIUM 3.9 mmol/L (3.5-5.1); SODIUM 134 mmol/L (136-145); TCO2 23 mmol/L (25-35)
--- NOTE | 2019-05-24 07:14 | Diag Imaging Result Doc PS360 ---
EXAM: CHEST-PORTABLE HISTORY: dyspnea TECHNIQUE: Single view COMPARISON: 05/23/2019 FINDINGS: Poor inspiratory effort. The heart is not enlarged. There is central vascular distention. No pleural effusions identified. No change in the nasogastric tube. IMPRESSION: Stable chest Electronically signed by Iftikhar Tracey 05/24/2019 7:12 AM
[2019-05-24] MEDS: MUCOMYST 20% INH SCH ×2 (07:34→19:31)
--- NOTE | 2019-05-24 14:31 | PROGRESS NOTE ---
DATE: 05/24/2019 SUBJECTIVE: The patient has no major complaints, but he is still very sedated. They have stopped his Ativan this morning, but he is still restrained and he is still confused. OBJECTIVE: Vital Signs: Blood pressure is 113/85, heart rate 96, respiratory rate 22, temperature 96.7 degrees. Cardiovascular: Regular rate and rhythm. Pulmonary: Bilateral breath sounds. Clear to auscultation. GI: Soft, nontender, nondistended. Bowel sounds were positive. NG is in place. LABORATORY DATA: White count 6, hemoglobin and hematocrit 13 and 40, platelets are up to 111. Sodium 134, overall improved. PROBLEM LIST: 1. Acute respiratory failure. He is extubated. He seems to be doing okay from that standpoint, although still confused. 2. Seizure in the setting of alcohol withdrawal syndrome. We will continue to monitor. No treatment at this time. He has not had any further episodes, but he has been on benzodiazepines pretty much continuously. 3. Alcohol withdrawal syndrome. He is off the Ativan drip, and I will transition to Librium today. 4. Left lower lobe pneumonia. He is on breathing treatments, pulmonary toilet, day 5. We need to get the nasogastric tube out as soon as his mental status improves. 5. Hypokalemia. We will continue to monitor. DISPOSITION: Pending his clinical status, we will continue to follow closely. cc: Mello Hairston MD
--- NOTE | 2019-05-24 15:56 | PULMONOLOGY PROGRESS NOTE ---
DATE: 05/24/2019 SUBJECTIVE: Patient responds to voice and painful stimuli. He remains lethargic. He has an intermittent cough that is noted. OBJECTIVE: Vital Signs: The patient has been afebrile for the last 24 hours. Blood pressure 117/79, heart rate 95, respiratory rate 20, oxygen saturation 97% on 2 L per nasal cannula. HEENT: Pupils are equal and reactive. Oropharynx appears clear. Neck: Supple. Chest: Reveals occasional rhonchi bilaterally. Cardiac: S1, S2. Abdomen: Soft. Extremities: Without edema DIAGNOSTIC DATA: Chest x-ray reveals no change. White blood count 6.79, hemoglobin 13.0, platelet count 115,000. Arterial blood gas with pH 7.44, pCO2 43, PO2 of 95 on 2 L per nasal cannula. IMPRESSION: A 48-year-old with: 1. Seizures. 2. Aspiration pneumonia. 3. Alcohol abuse. 4. Alcohol withdrawal syndrome. 5. Acute hypoxemic respiratory failure. 6. Lingual injury associated with seizures. PLAN: 1. Continue ICU monitoring. The patient is completing his Ativan drip. He should be able to transfer out of the ICU with improvement in mental status. 2. Continue antibiotics. 3. Continue ice chips for oral hygiene. 4. We will initiate DVT prophylaxis. cc: Mark Coyle MD
[2019-05-24] MEDS: FOLIC ACID IV SCH (16:08)
[2019-05-24] MEDS: LOVENOX SUBQ SCH (16:08)
[2019-05-24] MEDS: THIAMINE IV SCH (16:08)
[2019-05-24] MEDS: M V I IV SCH (16:08)
[2019-05-24] MEDS: LIBRIUM PO SCH ×2 (16:08→20:48)
[2019-05-24] MEDS: D5 NS IV SCH (16:08)
[2019-05-24] MEDS: PROTONIX IV SCH (20:48)
[2019-05-25] MEDS: DUONEB (A & A) INH SCH ×6 (03:11→23:21)
[2019-05-25] MEDS: ZOSYN 3.375 GM in NS 50 ML IV SCH ×4 (03:40→21:48)
[2019-05-25 04:40] LABS: ALLEN TEST YES; BE 4.7 mmoll (-3.0-3.0); BLOOD TYPE ARTERIAL; HCO3-(ACT) 28.6 mmoll (20.0-26.0); METHB 0.6 % (0.0-1.5); O2(CT) 17.3 mL/dL (15.0-23.0); O2HB 95.7 % (95.0-99.0); PCO2(98.6) 42 mmHg (35-45); PO2(98.6) 86 mmHg (60-100); SAMPLE BLOOD; SAO2 98.1 % (95.0-100.0); THB 12.8 g/dL (11.5-17.4); pH(98.6) 7.45 (7.35-7.45)
[2019-05-25 04:41] LABS: MODALITY CANNULA
[2019-05-25] MEDS: CLINIMIX E 4.25%-5% SOLUTION 1,000 ML IV SCH ×2 (06:22→11:45)
--- NOTE | 2019-05-25 07:01 | Diag Imaging Result Doc PS360 ---
EXAM: CHEST-PORTABLE 05/25/2019 HISTORY: dyspnea TECHNIQUE: AP portable at 0518 COMMENT: The NG tube remains with its tip in the stomach. The opacities present previously over the left base have improved since the previous study of 05/24/2019. No new abnormalities are present. IMPRESSION: Improved left lower lobe atelectasis. Electronically signed by Mert Bartlett 05/25/2019 6:58 AM
[2019-05-25] MEDS: MUCOMYST 20% INH SCH ×2 (08:00→19:43)
[2019-05-25] MEDS: LIBRIUM PO SCH ×3 (09:44→20:16)
--- NOTE | 2019-05-25 13:10 | PROGRESS NOTE ---
DATE: 05/25/2019 SUBJECTIVE: The patient is awake, alert. He is pretty lethargic, but he is awake. He does answer questions. He is still disoriented, but he is still agitated. He is still in restraints, but he says he is ready to go, which I am assuming means leave the hospital but still not completely in his right mind. OBJECTIVE: Vital signs: Blood pressure 145/80, heart rate 101, respiratory rate 21, temperature 97.6 degrees, 95% on 2 L. Cardiovascular: Regular rate and rhythm. Pulmonary: Diminished at the bases. GI: Soft, nontender, nondistended. Bowel sounds were positive. LABORATORY DATA: PH 7.45, pCO2, 42 PaO2 86. PROBLEM LIST: 1. Acute respiratory failure secondary to seizure, and he seems to be improving slowly. We will continue to monitor. 2. Seizure related to alcohol withdrawal. We will continue to monitor. He has not had any further episodes. 3. Alcohol withdrawal syndrome. We will transition to Librium and follow. He still altered. 4. Left lower lobe pneumonia. Continue breathing treatments. He is on antibiotics, which I think is Zosyn, which I think is day 5. 5. Hypokalemia. We will repeat potassium and magnesium tomorrow. I think he is probably okay to go to the step-down, but I want to see how he does kind of waking up a little bit more. cc: Mello Hairston MD
--- NOTE | 2019-05-25 16:44 | PULMONOLOGY PROGRESS NOTE ---
DATE: 05/25/2019 SUBJECTIVE: The patient opens his eyes to voice. He does follow commands. He has a marginal to good cough effort. OBJECTIVE: Vital Signs: The patient has been afebrile for the last 24 hours. BP 143/93, heart rate 103, respiratory rate 17, oxygen saturation 100%. HEENT: Pupils are equal and reactive. Oropharynx appears clear. Neck is supple. Chest reveals good air entry bilaterally. Cardiac Examination: S1-S2. Abdomen is soft. Extremities are without edema. Laboratories: Arterial blood gas reveals a pH of 7.45, pCO2 of 42, PO2 of 86. Chest x-ray reveals decreasing atelectasis/infiltrates in the bases. IMPRESSION: A 48-year-old with: 1. Alcohol abuse. 2. Aspiration pneumonia. 3. Seizure disorder. 4. Alcohol withdrawal syndrome. 5. Acute hypoxemic respiratory failure. 6. Lingual injury with continued improvement in clinical exam. PLAN: 1. Discontinue NG tube. 2. Advance diet as tolerated. 3. Begin mobilization, attempt to get patient out of the bed. 4. Continue DVT prophylaxis. 5. Hopefully transition out of the intensive care unit tomorrow if he continues to improve. cc: Mark Coyle MD
[2019-05-25] MEDS: LOVENOX SUBQ SCH (16:55)
[2019-05-25] MEDS: FOLIC ACID IV SCH (16:55)
[2019-05-25] MEDS: M V I IV SCH (16:55)
[2019-05-25] MEDS: D5 NS IV SCH (16:55)
[2019-05-25] MEDS: THIAMINE IV SCH (16:55)
[2019-05-25] MEDS: PROTONIX IV SCH (21:48)
[2019-05-26] MEDS: CLINIMIX E 4.25%-5% SOLUTION 1,000 ML IV SCH ×2 (01:22→08:17)
[2019-05-26] MEDS: DUONEB (A & A) INH SCH ×6 (03:49→23:21)
[2019-05-26] MEDS: ZOSYN 3.375 GM in NS 50 ML IV SCH (03:53)
[2019-05-26 06:31] LABS: AGAP 17; ALB/GLOB RATIO 1.1; ALBUMIN 3.6 g/dL (3.5-5.0); ALKALINE PHOSPHATASE 43 U/L (32-122); BUN 11 mg/dL (8-22); CHLORIDE 102 mmol/L (98-107); COSMO 282; CREATININE 0.5 mg/dL (0.7-1.2); ESTIMATED GFR > 60; GLUCOSE 123 mg/dL (70-104); GOT 29 U/L (10-34); GPT 21 U/L (10-44); MAGNESIUM 2.3 mg/dL (1.5-2.7); POTASSIUM 3.1 mmol/L (3.5-5.1); SODIUM 141 mmol/L (136-145); TCO2 22 mmol/L (25-35); TOTAL BILIRUBIN 0.55 mg/dL (0.20-1.00)
[2019-05-26 06:41] LABS: BASO# 0.05 X1000 (0.0-0.2); BASO% 1.3 % (0.0-0.8); EOS# 0.16 X1000 (0.0-0.7); EOS% 4.3 % (0.0-10.0); HEMATOCRIT 36.5 % (42.0-52.0); IMM GRAN# 0.03 X1000 (0.0-0.04); IMM GRAN% 0.8 % (0.0-0.5); LYMPH# 0.65 X1000 (1.2-3.4); LYMPH% 17.3 % (20.5-51.1); MCHC 32.9 g/dL (33-37); MCV 94.3 FL (81-99); MONO# 0.88 X1000 (0.11-0.59); MONO% 23.4 % (1.7-9.3); MPV 10.5 FL (7.4-10.4); NEUT# 1.99 X1000 (1.4-6.5); NEUT% 52.9 % (42.2-75.2); PLT 183 X1000 (130-400); RBC 3.87 XMIL (4.7-6.1); RDW 13.1 % (11.5-14.5); WBC 3.76 X1000 (4.8-10.8)
[2019-05-26 07:40] LABS: BASO 3 % (0-1); EOS 2 % (1-10); LYMPHS 20 % (21-51); MONO 15 % (1-9); SEGS 58 % (42-75)
[2019-05-26] MEDS: MUCOMYST 20% INH SCH ×2 (08:32→19:58)
[2019-05-26] MEDS ORDERED: ATIVAN IM PRN (10:28)
[2019-05-26] MEDS: LIBRIUM PO SCH ×3 (10:34→21:18)
[2019-05-26] MEDS: AUGMENTIN PO SCH ×2 (10:46→21:42)
[2019-05-26] MEDS ORDERED: POTASSIUM CHLORIDE 20 MEQ/SWI 20 MEQ/100 ML IVPB IV SCH (11:00)
[2019-05-26] MEDS: LOVENOX SUBQ SCH (15:51)
--- NOTE | 2019-05-26 22:10 | PULMONOLOGY PROGRESS NOTE ---
DATE: 05/26/2019 SUBJECTIVE: The patient is arousable to alert. He will follow commands. He is tolerating p.o. intake. OBJECTIVE: Vital Signs: The patient has been afebrile for the last 24 hours. Blood pressure 111/53, heart rate 102, respiratory rate 19, oxygen saturation 92% on 2 L per nasal cannula. HEENT: Pupils are equal and reactive. Oropharynx appears clear. Neck: Supple. Respiratory: Reveals occasional crackles bilaterally. Cardiac exam: S1, S2. Abdomen: Soft. Extremities: Without edema. IMPRESSION: A 48-year-old with: 1. Aspiration pneumonia. 2. Alcohol abuse. 3. Alcohol withdrawal syndrome. 4. Seizures. 5. Tongue injury associated with seizure. PLAN: 1. Continue to advance diet as tolerated. 2. Wean and discontinue oxygen. 3. Continue DVT prophylaxis. 4. Anticipate transfer to the floor today. cc: Mark Coyle MD
[2019-05-27] MEDS: DUONEB (A & A) INH SCH ×6 (04:09→23:14)
[2019-05-27] MEDS: PRILOSEC PO SCH (06:12)
[2019-05-27] MEDS: MUCOMYST 20% INH SCH ×2 (07:30→19:46)
[2019-05-27] MEDS: THERA M PLUS PO SCH (08:17)
[2019-05-27] MEDS: VITAMIN B-1 PO SCH (08:17)
[2019-05-27] MEDS: LIBRIUM PO SCH ×3 (08:17→20:36)
[2019-05-27] MEDS: AUGMENTIN PO SCH ×2 (08:17→20:36)
[2019-05-27] MEDS: FOLIC ACID PO SCH (08:17)
[2019-05-27 11:01] LABS: BASO# 0.07 X1000 (0.0-0.2); BASO% 1.3 % (0.0-0.8); EOS# 0.17 X1000 (0.0-0.7); EOS% 3.2 % (0.0-10.0); HEMATOCRIT 39.3 % (42.0-52.0); IMM GRAN# 0.07 X1000 (0.0-0.04); IMM GRAN% 1.3 % (0.0-0.5); LYMPH# 0.87 X1000 (1.2-3.4); LYMPH% 16.4 % (20.5-51.1); MCH 31.6 PG (27-31); MCHC 33.1 g/dL (33-37); MCV 95.4 FL (81-99); MONO# 1.43 X1000 (0.11-0.59); NEUT# 2.69 X1000 (1.4-6.5); NEUT% 50.8 % (42.2-75.2); PLT 230 X1000 (130-400); RBC 4.12 XMIL (4.7-6.1); RDW 13.3 % (11.5-14.5)
[2019-05-27 11:17] LABS: AGAP 13; BUN 8 mg/dL (8-22); CALCIUM 9.1 mg/dL (8.8-10.2); CHLORIDE 100 mmol/L (98-107); COSMO 274; CREATININE 0.7 mg/dL (0.7-1.2); ESTIMATED GFR > 60; GLUCOSE 101 mg/dL (70-104); POTASSIUM 3.3 mmol/L (3.5-5.1); SODIUM 138 mmol/L (136-145); TCO2 25 mmol/L (25-35)
[2019-05-27 11:26] LABS: EOS 2 % (1-10); LYMPHS 18 % (21-51); MONO 16 % (1-9); SEGS 64 % (42-75)
--- NOTE | 2019-05-27 15:48 | PROGRESS NOTE ---
DATE: 05/27/2019 SUBJECTIVE: Patient reports feeling fine. He denies any fever or chills. OBJECTIVE: Vital Signs: Temperature 98.7 degrees, heart rate 92, respiratory rate 17, blood pressure 104/64, O2 saturation 98% on room air. General Examination: This is a 48-year-old male, lying in bed in no acute distress. Cardiovascular exam: S1, S2 heard. No murmurs, gallops, or rubs. Regular rate and rhythm. Respiratory exam: Clear bilaterally to auscultation. No work of breathing or using accessory muscles. Abdomen: Soft, nontender to palpation. Bowel sounds present. No organomegaly. Extremities: No clubbing, cyanosis, or edema. Peripheral pulses present in both legs. Neurological exam: The patient is a little bit sleepy but answers to questions appropriately. Moves 4 extremities spontaneously. LABORATORY DATA: Reviewed. ASSESSMENT AND PLAN: 1. Acute respiratory failure secondary to seizure. Clinically is doing fine. We will continue to monitor. 2. Seizures due to alcohol withdrawal. No more episodes of seizures. 3. Alcohol withdrawal syndrome. We will continue with Librium, taper doses off. 4. Left lower lobe pneumonia. We will continue with antibiotics; in this case by mouth, Augmentin. 5. Hypokalemia, resolved. 6. Suicidal attempt. Patient is still suicidal. [facility] has been consulted. They recommend inpatient admission, but because they do not have any beds, clinical social worker will be notified to look for different places. 7. Disposition: We will continue to monitor this patient closely. We will wait for clinical social worker to try to find a place for him to be admitted in a psychiatric unit. cc: Marty Fink MD
[2019-05-27] MEDS: LOVENOX SUBQ SCH (20:36)
[2019-05-28] MEDS: DUONEB (A & A) INH SCH ×4 (03:20→15:22)
[2019-05-28] MEDS: PRILOSEC PO SCH (06:02)
[2019-05-28 07:28] LABS: AGAP 16; BUN 6 mg/dL (8-22); CALCIUM 8.3 mg/dL (8.8-10.2); CHLORIDE 104 mmol/L (98-107); COSMO 285; CREATININE 0.6 mg/dL (0.7-1.2); ESTIMATED GFR > 60; GLUCOSE 136 mg/dL (70-104); POTASSIUM 2.8 mmol/L (3.5-5.1); SODIUM 143 mmol/L (136-145); TCO2 23 mmol/L (25-35)
[2019-05-28 07:29] VITALS: BP 98/65
[2019-05-28] MEDS: MUCOMYST 20% INH SCH (07:39)
[2019-05-28 07:53] LABS: BASO# 0.08 X1000 (0.0-0.2); BASO% 2.2 % (0.0-0.8); EOS# 0.14 X1000 (0.0-0.7); EOS% 3.9 % (0.0-10.0); HEMATOCRIT 35.9 % (42.0-52.0); HEMOGLOBIN 11.6 g/dL (14.0-18.0); IMM GRAN# 0.05 X1000 (0.0-0.04); IMM GRAN% 1.4 % (0.0-0.5); LYMPH# 0.59 X1000 (1.2-3.4); LYMPH% 16.5 % (20.5-51.1); MCH 31.1 PG (27-31); MCHC 32.3 g/dL (33-37); MCV 96.2 FL (81-99); MONO# 0.85 X1000 (0.11-0.59); MONO% 23.7 % (1.7-9.3); MPV 10.4 FL (7.4-10.4); NEUT# 1.87 X1000 (1.4-6.5); NEUT% 52.3 % (42.2-75.2); PLT 235 X1000 (130-400); RBC 3.73 XMIL (4.7-6.1); RDW 13.4 % (11.5-14.5); WBC 3.58 X1000 (4.8-10.8)
[2019-05-28 08:29] LABS: LYMPHS 22 % (21-51); MONO 16 % (1-9); SEGS 62 % (42-75)
[2019-05-28] MEDS: AUGMENTIN PO SCH (08:43)
[2019-05-28] MEDS: FOLIC ACID PO SCH (08:43)
[2019-05-28] MEDS: THERA M PLUS PO SCH (08:43)
[2019-05-28] MEDS: VITAMIN B-1 PO SCH (08:43)
[2019-05-28] MEDS: LIBRIUM PO SCH (08:44)
[2019-05-28] MEDS ORDERED: POTASSIUM CHLORIDE 60 MEQ in NS 500 ML IV ONE (11:10)
--- NOTE | 2019-05-28 13:54 | DISCHARGE SUMMARY ---
ADMISSION DATE: 05/20/2019 DISCHARGE DATE: 05/28/2019 CONSULTATIONS: Dr. Mark Coyle of pulmonology. PERTINENT PROCEDURES: 1. Abdomen and pelvis CT, no acute abnormality. 2. Chest CT, lower lobe pneumonia with trace pleural fluid and bibasilar atelectasis. DISCHARGE DIAGNOSES: 1. Acute respiratory failure secondary to seizure. Clinically improved. 2. Seizure due to alcohol withdrawal. No more episodes of seizures. 3. Alcohol withdrawal syndrome. The patient has been on a Librium taper. 4. Left lower lobe pneumonia, followed by Dr. Coyle. The patient has been given Augmentin p.o. 5. Hypokalemia, resolved. 6. Suicidal attempt. Jimbo Newsome was consulted. Referrals were sent to [facility] for psych placement as well as [facility] and after evaluation, the patient has refused all treatment and wants to be discharged back home. HOSPITAL COURSE: Briefly, Mr. Massey is a 48-year-old gentleman with a history of alcohol abuse with a recent rehab stay, was found in his bed covered in blood. There was some question of possible suicide ideation. He was brought to the ED where he had a seizure with a tongue injury. It is likely that he bit his tongue during the seizure. He was intubated to protect his airway. He underwent a head CT and chest CT. There were no acute changes. It did show left lower lobe pneumonia and he was admitted for acute hypoxemic respiratory failure, treated for his pneumonia and alcohol withdrawal. Followed by Dr. Coyle, who placed on broad-spectrum antibiotics. Jimbo Newsome consult and many choices were sent out for psychiatric facilities. However, now the patient is adamantly refusing any type of treatment and states he is no longer suicidal, so he will be discharged back home today. VITAL SIGNS: Temperature is 98.8 degrees, heart rate 89, respirations 16, blood pressure 98/65, O2 is 98% on room air. DISCHARGE DIET: GI soft. DISCHARGE MEDICATIONS: 1. Acamprosate calcium 333 mg p.o. t.i.d. 2. Augmentin 875 p.o. q. 12 hours. 3. Baclofen 10 mg p.o. t.i.d. 4. Thera M 1 each p.o. daily. FOLLOWUP: Mr. Massey has recovered from his acute illness. He is no longer in alcohol withdrawal. His pneumonia is improving. He reports he is no longer suicidal and wants to be discharged back home with self care. He is to take all medications as prescribed. He can return to the ED or call 911 for any worsening of symptoms. Dictated by REHANA Talbert for Marty Fink MD Addendum: Patient seen and examined by myself. Agree with REHANA note. It reflects my assessment and plan. Patient is being discharged in stable condition to home. He refused to go to any facility for suicidal attempt. He is not suicidal anymore. cc: Marty Fink MD MTDD
== END 2019-05-28 16:47 | disposition home or self-care (01) | DRG 896 ==
LOC: SUPCPDRO → ED 14:55 → SUATTDRO 21:34 → ICU 21:34 → 2N 05-26 16:48
PROVIDERS: ATTEND Internal Medicine

== ENCOUNTER 2019-06-17 09:19 | Inpatient (IN) ==
[2019-06-17 10:35] LABS: URINE SOURCE CLEAN CATCH
[2019-06-17 10:36] LABS: BASO# 0.05 X1000 (0.0-0.2); BASO% 0.7 % (0.0-0.8); HEMATOCRIT 38.3 % (42.0-52.0); HEMOGLOBIN 12.6 g/dL (14.0-18.0); LYMPH# 0.39 X1000 (1.2-3.4); LYMPH% 5.1 % (20.5-51.1); MCH 30.8 PG (27-31); MCHC 32.9 g/dL (33-37); MCV 93.6 FL (81-99); MONO# 0.24 X1000 (0.11-0.59); MONO% 3.1 % (1.7-9.3); MPV 11.4 FL (7.4-10.4); NEUT# 6.97 X1000 (1.4-6.5); NEUT% 91.1 % (42.2-75.2); PLT 83 X1000 (130-400); RBC 4.09 XMIL (4.7-6.1); RDW 13.4 % (11.5-14.5); WBC 7.65 X1000 (4.8-10.8)
[2019-06-17 10:39] LABS: BILIRUBIN URINE NEGATIVE (NEGATIVE); BLOOD URINE SMALL (NEGATIVE); COLOR YELLOW; GLUCOSE URINE NEGATIVE (NEGATIVE); KETONE URINE 60 mg/dL (NEGATIVE); LEUKOCYTES URINE NEGATIVE (NEGATIVE); NITRITE URINE NEGATIVE (NEGATIVE); PH URINE 5.5; PROTEIN URINE 100 mg/dL (NEGATIVE); SP GRAVITY URINE 1.022; TURBIDITY URINE CLEAR (CLEAR); UR EPITHELIAL CELLS <10 /HPF (<10); URINE BACTERIA NEGATIVE /HPF; URINE RBC <10 /HPF (<10); URINE WBC <10 /HPF (<10); UROBILINOGEN URINE NORMAL (NORMAL)
[2019-06-17 11:02] LABS: ESTIMATED GFR > 60
[2019-06-17 11:07] LABS: AGAP 33; ALB/GLOB RATIO 1.6; ALBUMIN 4.6 g/dL (3.5-5.0); ALKALINE PHOSPHATASE 61 U/L (32-122); BUN 11 mg/dL (8-22); CALCIUM 8.6 mg/dL (8.8-10.2); CHLORIDE 93 mmol/L (98-107); COSMO 281; CREATININE 0.7 mg/dL (0.7-1.2); GLUCOSE 197 mg/dL (70-104); GOT 24 U/L (10-34); GPT 20 U/L (10-44); MAGNESIUM 1.7 mg/dL (1.5-2.7); PHOSPHORUS 2.7 mg/dL (2.7-4.5); POTASSIUM 3.6 mmol/L (3.5-5.1); SODIUM 138 mmol/L (136-145); TCO2 12 mmol/L (25-35); TOTAL BILIRUBIN 0.48 mg/dL (0.20-1.00); TOTAL PROTEIN 7.5 g/dL (6.3-8.3)
[2019-06-18 06:46] LABS: AGAP 12; BUN 7 mg/dL (8-22); CALCIUM 8.5 mg/dL (8.8-10.2); CHLORIDE 102 mmol/L (98-107); COSMO 275; CREATININE 0.7 mg/dL (0.7-1.2); ESTIMATED GFR > 60; GLUCOSE 81 mg/dL (70-104); SODIUM 139 mmol/L (136-145); TCO2 25 mmol/L (25-35)
[2019-06-18 06:53] LABS: BASO# 0.02 X1000 (0.0-0.2); BASO% 0.3 % (0.0-0.8); EOS# 0.02 X1000 (0.0-0.7); EOS% 0.3 % (0.0-10.0); HEMATOCRIT 32.1 % (42.0-52.0); HEMOGLOBIN 10.7 g/dL (14.0-18.0); LYMPH% 8.2 % (20.5-51.1); MCH 31.8 PG (27-31); MCHC 33.3 g/dL (33-37); MCV 95.3 FL (81-99); MONO% 4.9 % (1.7-9.3); NEUT# 5.23 X1000 (1.4-6.5); NEUT% 86.3 % (42.2-75.2); PLT 51 X1000 (130-400); RBC 3.37 XMIL (4.7-6.1); RDW 13.6 % (11.5-14.5); WBC 6.07 X1000 (4.8-10.8)
[2019-06-18 07:44] LABS: LYMPHS 9 % (21-51); MONO 4 % (1-9); SEGS 87 % (42-75)
[2019-06-19 02:04] LABS: URINE SOURCE CATH
[2019-06-19 02:07] LABS: BILIRUBIN URINE NEGATIVE (NEGATIVE); BLOOD URINE NEGATIVE (NEGATIVE); COLOR STRAW; GLUCOSE URINE NEGATIVE (NEGATIVE); KETONE URINE TRACE mg/dL (NEGATIVE); LEUKOCYTES URINE NEGATIVE (NEGATIVE); NITRITE URINE NEGATIVE (NEGATIVE); PH URINE 7.5; PROTEIN URINE NEGATIVE (NEGATIVE); SP GRAVITY URINE 1.005; TURBIDITY URINE CLEAR (CLEAR); UROBILINOGEN URINE NORMAL (NORMAL)
[2019-06-19 02:08] LABS: UR EPITHELIAL CELLS <10 /HPF (<10); URINE BACTERIA NEGATIVE /HPF; URINE RBC <10 /HPF (<10); URINE WBC <10 /HPF (<10)
[2019-06-19 07:01] LABS: BASO# 0.01 X1000 (0.0-0.2); BASO% 0.2 % (0.0-0.8); EOS# 0.13 X1000 (0.0-0.7); EOS% 3.1 % (0.0-10.0); HEMATOCRIT 38.1 % (42.0-52.0); HEMOGLOBIN 12.3 g/dL (14.0-18.0); LYMPH# 0.71 X1000 (1.2-3.4); LYMPH% 17.1 % (20.5-51.1); MCH 30.7 PG (27-31); MCHC 32.3 g/dL (33-37); MONO# 0.42 X1000 (0.11-0.59); MONO% 10.1 % (1.7-9.3); MPV 11.9 FL (7.4-10.4); NEUT# 2.88 X1000 (1.4-6.5); NEUT% 69.5 % (42.2-75.2); PLT 51 X1000 (130-400); RBC 4.01 XMIL (4.7-6.1); RDW 13.4 % (11.5-14.5); WBC 4.15 X1000 (4.8-10.8)
[2019-06-19 08:44] LABS: AGAP 22; ALB/GLOB RATIO 1.6; ALBUMIN 4.4 g/dL (3.5-5.0); ALKALINE PHOSPHATASE 51 U/L (32-122); BUN 4 mg/dL (8-22); CALCIUM 8.8 mg/dL (8.8-10.2); CHLORIDE 104 mmol/L (98-107); COSMO 285; CREATININE 0.6 mg/dL (0.7-1.2); ESTIMATED GFR > 60; GLUCOSE 89 mg/dL (70-104); GOT 29 U/L (10-34); GPT 19 U/L (10-44); MAGNESIUM 2.2 mg/dL (1.5-2.7); POTASSIUM 3.6 mmol/L (3.5-5.1); SODIUM 145 mmol/L (136-145); TCO2 19 mmol/L (25-35); TOTAL BILIRUBIN 0.56 mg/dL (0.20-1.00); TOTAL PROTEIN 7.2 g/dL (6.3-8.3)
[2019-06-21 05:31] LABS: BASO# 0.04 X1000 (0.0-0.2); EOS# 0.29 X1000 (0.0-0.7); EOS% 7.3 % (0.0-10.0); LYMPH# 0.59 X1000 (1.2-3.4); LYMPH% 14.8 % (20.5-51.1); MCH 30.9 PG (27-31); MCHC 33.3 g/dL (33-37); MCV 92.8 FL (81-99); MONO# 0.48 X1000 (0.11-0.59); MONO% 12.1 % (1.7-9.3); MPV 11.3 FL (7.4-10.4); NEUT# 2.58 X1000 (1.4-6.5); NEUT% 64.8 % (42.2-75.2); PLT 82 X1000 (130-400); RBC 3.88 XMIL (4.7-6.1); RDW 13.3 % (11.5-14.5); WBC 3.98 X1000 (4.8-10.8)
[2019-06-21 05:49] LABS: AGAP 14; BUN 3 mg/dL (8-22); CALCIUM 8.8 mg/dL (8.8-10.2); CHLORIDE 102 mmol/L (98-107); COSMO 270; CREATININE 0.4 mg/dL (0.7-1.2); ESTIMATED GFR > 60; GLUCOSE 99 mg/dL (70-104); POTASSIUM 3.2 mmol/L (3.5-5.1); SODIUM 137 mmol/L (136-145); TCO2 21 mmol/L (25-35)
[2019-06-23 06:28] LABS: BASO# 0.02 X1000 (0.0-0.2); BASO% 0.5 % (0.0-0.8); EOS# 0.15 X1000 (0.0-0.7); EOS% 3.8 % (0.0-10.0); HEMATOCRIT 37.6 % (42.0-52.0); HEMOGLOBIN 12.4 g/dL (14.0-18.0); LYMPH# 0.64 X1000 (1.2-3.4); MCH 31.1 PG (27-31); MCV 94.2 FL (81-99); MONO# 0.84 X1000 (0.11-0.59); NEUT# 2.35 X1000 (1.4-6.5); NEUT% 58.7 % (42.2-75.2); PLT 130 X1000 (130-400); RBC 3.99 XMIL (4.7-6.1); RDW 13.6 % (11.5-14.5)
[2019-06-23 06:56] LABS: AGAP 14; BUN 3 mg/dL (8-22); CALCIUM 9.3 mg/dL (8.8-10.2); CHLORIDE 102 mmol/L (98-107); COSMO 272; CREATININE 0.6 mg/dL (0.7-1.2); ESTIMATED GFR > 60; GLUCOSE 95 mg/dL (70-104); MAGNESIUM 1.9 mg/dL (1.5-2.7); POTASSIUM 3.8 mmol/L (3.5-5.1); SODIUM 138 mmol/L (136-145); TCO2 22 mmol/L (25-35)
[2019-06-23 07:23] LABS: EOS 2 % (1-10); LYMPHS 15 % (21-51); MONO 17 % (1-9); SEGS 66 % (42-75)
[2019-06-24 12:38] VITALS: BP 103/64
[2019-06-24 13:23] LABS: UR AMPHETAMINES QUAL NONE DETECTED (NONE DETECT); UR BARBITUATES QUAL PRESUMPTIVE POSITIVE (NONE DETECT); UR BENZODIAZEPIN QUAL PRESUMPTIVE POSITIVE (NONE DETECT); UR CANNABINOIDS QUAL NONE DETECTED (NONE DETECT); UR COCAINE QUAL NONE DETECTED (NONE DETECT); UR METHADONE QUAL NONE DETECTED (NONE DETECT); UR OPIATES QUAL NONE DETECTED (NONE DETECT); UR OXYCODONE QUAL NONE DETECTED (NONE DETECT); UR PCP QUAL NONE DETECTED (NONE DETECT)
== END 2019-06-24 16:45 | disposition home or self-care (01) | DRG 897 ==
LOC: SUPCPDRO → ED 09:19 → SUATTDRO 16:32 → EDIPHOLD 16:32 → ICU 20:28 → 2N 06-22 17:11
PROVIDERS: ATTEND Internal Medicine

== ENCOUNTER 2019-07-31 16:32 | Inpatient (IN) ==
[2019-07-31] MEDS ORDERED: ASPIRIN PO ONE (17:20)
[2019-07-31] MEDS ORDERED: ASPIRIN PR ONE (17:20)
--- NOTE | 2019-07-31 17:43 | Diag Imaging Result Doc PS360 ---
EXAM: CHEST-2 VIEWS INDICATION: palpitations TECHNIQUE: 2 views COMPARISON: 06/19/2019 FINDINGS: There is right basilar subsegmental atelectasis. The lungs are grossly clear, otherwise. There is no discrete pleural fluid collection or pneumothorax. The cardiomediastinal silhouette and central vasculature are grossly unremarkable. IMPRESSION: Mild right basilar subsegmental atelectasis. No definite acute chest pathology by plain radiograph, otherwise. Electronically signed by Amanuel Urias 07/31/2019 5:41 PM
[2019-07-31] MEDS ORDERED: M.V.I.-12 10 ML, FOLIC ACID 1 MG, MAGNESIUM SULFATE 1 GM, THIAMINE 100 MG in NS 1,000 ML IV ONE (17:54)
[2019-07-31] MEDS ORDERED: ATIVAN IV ONE (17:54)
[2019-07-31 17:59] LABS: INR 0.96; PROTIME 12.8 Seconds (11.0-16.0)
[2019-07-31 18:00] LABS: PTT 24.5 Seconds (22.3-41.8)
--- NOTE | 2019-07-31 18:01 | PROVIDER DOCUMENTATION ---
This chart was entered by Kathleen Campbell Scribe, acting as scribe for Quan Hayes MD. HPI-General Adult - General Chief Complaint: Seizure Stated Complaint: HAD SEIZURE Time Seen by Provider: 07/31/19 17:48 Source: patient Allergies/Adverse Reactions: Patient Allergies Allergy/AdvReac Type Severity Reaction Status Date / Time No Known Allergies Allergy Verified 07/10/19 22:13 Home Medications: Home Medication List Medication Instructions Recorded Confirmed Last Taken Type NK [No Home Medications] 07/10/19 07/10/19 Unknown History - History of Present Illness -Gen Adult Nature of Presenting Problems: 48 y/o male presents to ED with possible seizure onset today. Pt reports he lost consciousness around 1300 this afternoon. Pt states he is unsure how long he was unconscious. Pt reports "seizure" was unwitnessed. Pt denies incontinence or tongue bite. Pt states he had 8 beers today. Pt reports he is used to drinking a pint of alcohol daily. Pt is alert and oriented. Location of Pain/Injury: reports: none Pain Radiation: reports: no radiation Quality of Pain: reports: none Severity: reports: mild Onset/Duration: reports: this afternoon Timing: reports: gone now Context/Activities at Onset: reports: none Modifying Factors: improves with: nothing Associated Symptoms: reports: seizure (?), other (loss of consciousness) Similar Symptoms Previously?: No Recently seen or treated by another doctor?: No Review of Systems - Adult - REVIEW OF SYSTEMS - ADULT Constitutional: denies: chills, fever Eyes: reports: no symptoms reported Ears, Nose, Mouth & Throat: reports: no symptoms reported Cardiovascular: denies: chest pain, palpitations Respiratory: denies: cough, shortness of breath Gastrointestinal: denies: abdominal pain, diarrhea, nausea, vomiting Genitourinary: reports: no symptoms reported Musculoskeletal: reports: no symptoms reported Integumentary: reports: no symptoms reported Neurological: reports: seizure (?), other (loss of consciousness) Psychiatric: reports: no symptoms reported Endocrine: reports: no symptoms reported Hematologic/Lymphatic: reports: no symptoms reported Allergic/Immunologic: reports: no symptoms reported All Other Systems: Reviewed and Negative Past History - Adult - PAST MEDICAL HISTORY-ADULT Review of Records: reports: Old Records Reviewed, Nursing Assessment Review, M edications Reviewed Major Childhood Illnesses: reports: denies history Cardiovascular: reports: A-Fib, arrhythmia (SVT with ablation) Respiratory: reports: denies history Gastrointestinal: reports: denies history Obstetrical/Gynecological: reports: denies history Genitourinary: reports: denies history Musculoskeletal: reports: denies history Neurological: reports: denies history, Seizures/Epilepsy (with etoh withdrawl) Psychiatric: reports: anxiety, depression Endocrine/Immune: reports: denies history Other Conditions: reports: denies history - PRIOR SURGERIES/PROCEDURES Surgical/Procedure History: reports: hernia repair, other (ablation) - IMMUNIZATION STATUS Childhood Immunizations: See Nurse Assessment Flu Vaccine: See Nurse Assessment - FAMILY HISTORY Family History: reviewed, not pertinent - SOCIAL HISTORY Smoking: non-smoker Substance Use: alcohol Alcohol Use Frequency: every day Living Situation: family Physical Exam-General - PHYSICAL EXAM-ADULT Initial Vital Signs Reviewed: Yes - CONSTITUTIONAL General Appearance: alert, anxious, other (restless; disheveled) - EYES Eyes: PERRL/EOMI, pink conjunctivae - HEAD, EARS, NOSE, MOUTH & THROAT HENMT: normocephalic/atraumatic, moist mucous membranes, normal ENT inspection - NECK Neck: non-tender, full range of motion - RESPIRATORY Respiratory: chest non-tender, lungs clear, normal breath sounds - CARDIOVASCULAR Cardiovascular: normal peripheral pulses, regular rate, rhythm - GASTROINTESTINAL (ABDOMEN) Abdominal Exam: normal bowel sounds, non tender, soft - MUSCULOSKELETAL Back Exam: normal inspection, no CVA tenderness, no vertebral tenderness Extremity: normal range of motion, non-tender - SKIN Integumentary: normal color, warm/dry - NEUROLOGIC Neurologic: grossly normal - PSYCHIATRIC Psych/Mental Status: normal mood/affect, normal thought content, normal thought process, oriented x 3, anxious, disheveled, other (restless) Progress - PLAN OF CARE/RESULTS Progress/Plan/Lab Results: Vital Signs - 8 hr 07/31/19 16:44 Temperature 98 F Pulse Rate 234 H Respiratory Rate 16 Blood Pressure 145/97 O2 Sat by Pulse Oximetry 94 L Orders Category Date Time Status Cardiac Monitoring DIRECTED Care 07/31/19 17:21 Active Oxygen Therapy- ED Nursing DIRECTED Care 07/31/19 17:21 Active Saline Loc NOW Care 07/31/19 17:21 Active CHEST-2 VIEWS [RAD] Stat Exams 07/31/19 17:21 Completed CBC WITH ELECTRONIC DIFF [HEME] Stat Lab 07/31/19 17:21 Results CK PROFILE [SP CHEM] Stat Lab 07/31/19 17:21 Received COMPREHENSIVE METABOLIC PANEL [CHEM] Stat Lab 07/31/19 17:21 Received PRO B-NATRIURETIC PEPTIDE Stat Lab 07/31/19 17:21 Received PROTIME WITH INR [COAG] Stat Lab 07/31/19 17:21 Received PTT [COAG] Stat Lab 07/31/19 17:21 Received TROPONIN T Stat Lab 07/31/19 17:21 Received Aspirin Med 07/31/19 17:20 Discontinued 300 mg LA NOW ONE Aspirin Med 07/31/19 17:20 Discontinued 325 mg PO NOW ONE CP/SOB/Palp >45 yrs of Age Stat Oth 07/31/19 17:20 Ordered EKG [EKG] Stat Ther 07/31/19 16:57 Ordered Result Diagrams: 07/31/19 17:21 - EKG 1 Time of EKG reading by physician:: 17:30 EKG Read and Signed by:: Quan Hayes EKG Interpretation (*Must complete 3 of following elements*): Abnormal Rate: 103 Rhythm: Sinus tach Fleischmanns: left QRS: LBB LA Interval: normal ST Wave: normal - XRAY 1 XRAY Study: Chest Impression: See EMR Report ([facility] - [address] [place] [address] [address] [id number] [facility] - [address] [place] [address] Department of Imaging Patient: LIS BELTRAN Date: 07/31/19#: [id number] : 1970ADM Status: PRE ERAcct#: [id number] Age/Sex: 48/MRoom/Bed: Loc: ED Ordering Physician: Doe Allen MD Family Physician: None,PCP Reason for Procedure: palpitations Signed EXAM: CHEST-2 VIEWS INDICATION: palpitations TECHNIQUE: 2 views COMPARISON: 06/19/2019 FINDINGS: There is right basilar subsegmental atelectasis. The lungs are grossly clear, otherwise. There is no discrete pleural fluid c ollection or pneumothorax. The cardiomediastinal silhouette and central vasculature are grossly unremarkable. IMPRESSION: Mild right basilar subsegmental atelectasis. No definite acute chest pathology by plain radiograph, otherwise. Electronically signed by Amanuel Urias 07/31/2019 5:41 PM 07/31/19 174 Interpreting Physician: Amanuel Urias MD Dictated Date/Time: 07/31/191739 cc: Doe Allen MD; None,PCP) - CT/MRI 1 CT Study: Head Impression: See EMR Report Departure - Departure Referrals and Follow-Ups: None,PCP [Primary Care Provider] - Attestation - Physician/ ROGERS Attestation Patient care was provided by Advanced Practice Provider:: No The physician spent face to face time with patient:: Yes Advanced Practice Provider documentation review:: Supervising physician onsite and consulted in the evaluation and care of this patient. The physician did have a face to face encounter with the patient. This chart was documented by the indicated scribe, (Kathleen Campbell, Mor) and accurately reflects the services I performed and decisions made by me, Quan Hayes MD, as attested by the provider's signature.
[2019-07-31 18:08] LABS: BASO# 0.11 X1000 (0.0-0.2); BASO% 3.4 % (0.0-0.8); EOS# 0.02 X1000 (0.0-0.7); EOS% 0.6 % (0.0-10.0); HEMATOCRIT 37.5 % (42.0-52.0); HEMOGLOBIN 12.4 g/dL (14.0-18.0); LYMPH% 15.3 % (20.5-51.1); MCH 29.5 PG (27-31); MCHC 33.1 g/dL (33-37); MCV 89.1 FL (81-99); MONO# 0.32 X1000 (0.11-0.59); MONO% 9.8 % (1.7-9.3); MPV 9.8 FL (7.4-10.4); NEUT# 2.31 X1000 (1.4-6.5); NEUT% 70.9 % (42.2-75.2); PLT 38 X1000 (130-400); RBC 4.21 XMIL (4.7-6.1); RDW 13.3 % (11.5-14.5); WBC 3.26 X1000 (4.8-10.8)
[2019-07-31 18:13] LABS: AGAP 18; ALB/GLOB RATIO 1.8; ALBUMIN 4.8 g/dL (3.5-5.0); ALKALINE PHOSPHATASE 61 U/L (32-122); BUN 6 mg/dL (8-22); CALCIUM 8.7 mg/dL (8.8-10.2); CHLORIDE 100 mmol/L (98-107); COSMO 281; CREATININE 0.6 mg/dL (0.7-1.2); ESTIMATED GFR > 60; GLUCOSE 101 mg/dL (70-104); GOT 81 U/L (10-34); GPT 31 U/L (10-44); POTASSIUM 3.3 mmol/L (3.5-5.1); SODIUM 142 mmol/L (136-145); TCO2 24 mmol/L (25-35); TOTAL BILIRUBIN 0.34 mg/dL (0.20-1.00); TOTAL PROTEIN 7.4 g/dL (6.3-8.3)
[2019-07-31 18:14] LABS: CK PROFILE 1445 U/L (24-204)
[2019-07-31 18:41] LABS: CK INDEX 1.2 (0.0-2.5); CK-MB 17.21 ng/mL (0.0-5.0)
--- NOTE | 2019-07-31 19:12 | Diag Imaging Result Doc PS360 ---
EXAM: CT HEAD W/O CONTRAST INDICATION: AMS TECHNIQUE: This exam was performed using automated exposure control, adjustment of mA or kV according to patient size, and/or use of iterative reconstruction technique. COMPARISON: 07/10/2019 FINDINGS: There is no definite acute infarct given the limited sensitivity of CT versus MRI. There is no discrete intracranial mass, mass effect, or intracranial hemorrhage. There is stable mild edema involving the scalp posteriorly at the site of the hematoma seen on the previous study. IMPRESSION: No evidence of acute intracranial pathology. Electronically signed by Amanuel Urias 07/31/2019 7:10 PM
[2019-07-31 20:19] LABS: UR AMPHETAMINES QUAL NONE DETECTED (NONE DETECT); UR BARBITUATES QUAL NONE DETECTED (NONE DETECT); UR BENZODIAZEPIN QUAL NONE DETECTED (NONE DETECT); UR CANNABINOIDS QUAL NONE DETECTED (NONE DETECT); UR COCAINE QUAL NONE DETECTED (NONE DETECT); UR METHADONE QUAL NONE DETECTED (NONE DETECT); UR OPIATES QUAL NONE DETECTED (NONE DETECT); UR OXYCODONE QUAL NONE DETECTED (NONE DETECT); UR PCP QUAL NONE DETECTED (NONE DETECT)
--- NOTE | 2019-07-31 22:34 | HISTORY AND PHYSICAL ---
PRIMARY CARE PHYSICIAN: None. CHIEF COMPLAINT: Possible seizures. HISTORY OF PRESENTING ILLNESS: A 48-year-old male with a history of chronic alcoholism who usually drinks about a case of beer every night who had presented to the emergency department because he thought that he had some seizure like activity. He states that he had some loss of consciousness and did not really know how long he was out. He was brought to the emergency department and due to suspected alcohol withdrawal symptoms it was thought that we would will place him for observation for further evaluation management. At the time of my examination, the patient is awake. He denied any headache, fever, chills, chest pain, shortness of breath or any weight changes. States that his hands are still tremulous. PAST MEDICAL HISTORY: None. PAST SURGICAL HISTORY: Catheter ablation. ALLERGIES: No known drug allergies. CURRENT MEDICATIONS: None. SOCIAL HISTORY: Denies any history of smoking. Admits to drinking a case of beer. Previously, he was drinking vodka. FAMILY HISTORY: No history of coronary disease. REVIEW OF SYSTEMS: Fourteen point review of system as listed in HPI. Other systems negative. PHYSICAL EXAMINATION: GENERAL: Cooperative, friendly male. He is resting more comfortably now. VITAL SIGNS: Temperature 98.0 degrees, pulse 110, respirations 16, blood pressure 145/97. HEENT: Atraumatic, normocephalic. Extraocular movements intact. PERRLA. NECK: No masses. CHEST: Clear to auscultation. CARDIOVASCULAR: Regular rate and rhythm. ABDOMEN: Soft. Positive bowel sounds. EXTREMITIES: No edema. NEUROLOGIC: He is awake, alert, oriented x3. : No bladder distention. SKIN: Warm. LABORATORIES AND STUDIES: WBC 3.26, hemoglobin 12.4, hematocrit 37.5, platelets 238,000. Sodium 142, potassium 3.3, chloride 100, CO2 24, BUN is 6, creatinine 2.6, glucose 101, creatinine kinase is 1445, AST 81, ALT 31. Troponin 0.010. CT of the head negative. Chest x-ray: No acute chest pathology. ASSESSMENT: A 48-year-old male with a history of chronic alcoholism who had presented to emergency department with 1-day history of having possible seizure-like activities. He was evaluated in the emergency department. It was suspected he was having alcohol withdrawal. Subsequently, we will place him for observation for further evaluation management. ASSESSMENT: 1. Suspected alcohol withdrawal. 2. Seizure activity by patient's history. 3. Thrombocytopenia. PLAN: 1. We will admit the patient to the medical floor. 2. Continue with supportive treatment with IV fluids, banana bag and antiemetics as needed. 3. We will use Ativan p.r.n. withdrawal symptoms. 4. We will continue to monitor his platelets. 5. Put patient on deep vein thrombosis prophylaxis with sequential compression devices. 6. We will continue to follow and reassess. Make further recommendation based on the patient's clinical course. cc: Paolo Flores MD
[2019-08-01] MEDS ORDERED: M.V.I.-12 10 ML, FOLIC ACID 1 MG, MAGNESIUM SULFATE 1 GM, THIAMINE 100 MG in NS 1,000 ML IV ONE (00:59)
[2019-08-01] MEDS ORDERED: ZOFRAN IV PRN (00:59)
[2019-08-01] MEDS: ATIVAN IV PRN ×6 (01:46→22:45)
--- NOTE | 2019-08-01 05:26 | EKG Report ---
Test Performed on : 07/31/2019 5:02:28 PM Test Reason : PALPITATIONS Blood Pressure : / mmHG Vent. Rate : 103 BPM Atrial Rate : 103 BPM P-R Int : 184 ms QRS Dur : 148 ms QT Int : 402 ms P-R-T Axes : 026 -36 131 degrees QTc Int : 526 ms Sinus tachycardia. Left axis deviation Left bundle branch block Abnormal ECG When compared with ECG of 21-JUN-2019 05:45, No significant change was found Unconfirmed Result
[2019-08-01 06:46] LABS: BASO# 0.09 X1000 (0.0-0.2); BASO% 2.3 % (0.0-0.8); EOS# 0.02 X1000 (0.0-0.7); EOS% 0.5 % (0.0-10.0); HEMATOCRIT 38.6 % (42.0-52.0); HEMOGLOBIN 12.5 g/dL (14.0-18.0); LYMPH# 0.39 X1000 (1.2-3.4); LYMPH% 10.1 % (20.5-51.1); MCH 29.1 PG (27-31); MCHC 32.4 g/dL (33-37); MONO# 0.36 X1000 (0.11-0.59); MONO% 9.3 % (1.7-9.3); MPV 11.2 FL (7.4-10.4); NEUT% 77.8 % (42.2-75.2); PLT 34 X1000 (130-400); RBC 4.29 XMIL (4.7-6.1); RDW 13.3 % (11.5-14.5); WBC 3.86 X1000 (4.8-10.8)
[2019-08-01 07:06] LABS: AGAP 21; BUN 7 mg/dL (8-22); CALCIUM 8.2 mg/dL (8.8-10.2); CHLORIDE 97 mmol/L (98-107); COSMO 274; CREATININE 0.5 mg/dL (0.7-1.2); ESTIMATED GFR > 60; GLUCOSE 80 mg/dL (70-104); POTASSIUM 3.4 mmol/L (3.5-5.1); SODIUM 139 mmol/L (136-145); TCO2 21 mmol/L (25-35)
--- NOTE | 2019-08-01 14:27 | PROGRESS NOTE ---
DATE: 08/01/2019 SUBJECTIVE: Patient reports that this is not the first time that he had this episode of alcohol withdrawal, that he feels very anxious and actually, he reports having had seizures because of this. At this point, he feels very anxious. OBJECTIVE: Vital Signs: Temperature 98.7 degrees, heart rate 117, respiratory rate 18, blood pressure 139/82, O2 saturation 97% on room air. General: This is a 48-year-old male, lying in bed, tremulous. No acute distress. HEENT: Head is normocephalic, atraumatic. Mucous membranes dry. Neck: No JVD noted. No carotid bruits. No lymphadenopathy. No thyromegaly. Cardiovascular: S1, S2 heard. No murmurs, gallops, or rubs. Regular rate and rhythm. Respiratory: Clear bilaterally to auscultation. No work of breathing or using accessory muscles. Abdomen: Soft. Nontender to palpation. Bowel sounds present. No organomegaly. Extremities: No clubbing, cyanosis, or edema. Peripheral pulses present in both legs. Neurological: The patient is tremulous. Alert and oriented. Moves 4 extremities. LABORATORY DATA: Reviewed. ASSESSMENT: 1. Alcohol withdrawal. 2. Thrombocytopenia most likely related to chronic alcohol consumption. 3. Seizure activity secondary to alcohol withdrawal. PLAN: At this point, I am going to transfer this patient to our PVC unit. We will start something by mouth. In this case, his Librium and baclofen, and will continues to use Ativan p.r.n. We will continue with intravenous fluid that has been stopped. We will continue to monitor CBC daily to see his thrombocytopenia. cc: Marty Fink MD
[2019-08-01] MEDS: LIORESAL PO SCH ×2 (14:50→17:26)
[2019-08-01] MEDS: LIBRIUM PO SCH ×3 (14:50→18:30)
[2019-08-01] MEDS: LR 1,000 ML IV SCH ×3 (14:50→22:57)
[2019-08-01] MEDS: THIAMINE 100 MG in NS 50 ML IV SCH (14:54)
[2019-08-02] MEDS: LIBRIUM PO SCH ×5 (01:28→20:56)
[2019-08-02] MEDS: ATIVAN IV PRN ×5 (01:28→20:56)
[2019-08-02] MEDS: LR 1,000 ML IV SCH ×4 (03:48→22:04)
[2019-08-02 06:03] LABS: BASO# 0.03 X1000 (0.0-0.2); EOS# 0.07 X1000 (0.0-0.7); EOS% 2.3 % (0.0-10.0); HEMATOCRIT 36.5 % (42.0-52.0); HEMOGLOBIN 11.6 g/dL (14.0-18.0); LYMPH# 0.37 X1000 (1.2-3.4); LYMPH% 11.9 % (20.5-51.1); MCHC 31.8 g/dL (33-37); MCV 91.3 FL (81-99); MONO# 0.48 X1000 (0.11-0.59); MONO% 15.5 % (1.7-9.3); MPV 11.1 FL (7.4-10.4); NEUT# 2.15 X1000 (1.4-6.5); NEUT% 69.3 % (42.2-75.2); RDW 13.2 % (11.5-14.5)
[2019-08-02 06:09] LABS: PLT 31 X1000 (130-400)
[2019-08-02 06:13] LABS: AGAP 15; ALB/GLOB RATIO 1.7; ALBUMIN 4.3 g/dL (3.5-5.0); ALKALINE PHOSPHATASE 61 U/L (32-122); BUN 5 mg/dL (8-22); CALCIUM 8.8 mg/dL (8.8-10.2); CHLORIDE 94 mmol/L (98-107); COSMO 267; CREATININE 0.6 mg/dL (0.7-1.2); ESTIMATED GFR > 60; GLUCOSE 94 mg/dL (70-104); GOT 50 U/L (10-34); GPT 26 U/L (10-44); POTASSIUM 3.3 mmol/L (3.5-5.1); SODIUM 135 mmol/L (136-145); TCO2 26 mmol/L (25-35); TOTAL BILIRUBIN 0.81 mg/dL (0.20-1.00); TOTAL PROTEIN 6.9 g/dL (6.3-8.3)
[2019-08-02] MEDS: LIORESAL PO SCH ×3 (08:28→17:33)
[2019-08-02] MEDS ORDERED: POTASSIUM CHLORIDE 60 MEQ in NS 500 ML IV ONE (08:37)
--- NOTE | 2019-08-02 12:13 | PROGRESS NOTE ---
DATE: 08/02/2019 SUBJECTIVE: The patient reports feeling a little bit more calmed down. No seizure activity noted since he is here in the hospital. OBJECTIVE: Vital Signs: Temperature 98.2 degrees, heart rate 110, respiratory rate 21, blood pressure 122/84, O2 saturation 97% on room air. General: On examination this is a chronically ill-appearing 48-year-old male, lying in bed, in no acute distress. Cardiovascular: S1, S2 heard. No murmurs, gallops, or rubs. Regular rate and rhythm. Respiratory: Clear bilaterally to auscultation. No work of breathing or using accessory muscles. Abdomen: Soft, nontender to palpation. Bowel sounds present. No organomegaly. Extremities: Hand tremor noted in both upper extremities, better in comparing with yesterday. No clubbing, cyanosis or edema. Peripheral pulses present in both legs. Neurological: Patient with tremors, but less in comparing with yesterday, more alert and oriented. Moves all 4 extremities. LABORATORY DATA: The hemoglobin is 11.6, platelet 31,000. Potassium 3.3. Phosphorus 3.0. ASSESSMENT: 1. Alcohol withdrawal. 2. Thrombocytopenia related to chronic alcohol consumption. 3. Seizure activity secondary to condition #1. PLAN: Patient is more stable. We have started him on baclofen and Librium. He is receiving Ativan p.r.n. He is alert and awake. We will continue to monitor CBC daily for thrombocytopenia, but at this point he is not having any signs of bleeding so we do not think this patient will need platelet transfusion, we will continue to monitor. cc: Marty Fink MD
[2019-08-02] MEDS: THIAMINE 100 MG in NS 50 ML IV SCH (14:29)
[2019-08-02] MEDS: PHENOBARBITAL IV SCH ×2 (22:07→22:57)
[2019-08-03] MEDS: LR 1,000 ML IV SCH ×6 (00:58→21:39)
[2019-08-03] MEDS: LIBRIUM PO SCH ×5 (00:58→18:20)
[2019-08-03] MEDS: ATIVAN IV PRN ×3 (02:25→21:37)
[2019-08-03 07:12] LABS: BASO# 0.05 X1000 (0.0-0.2); BASO% 1.9 % (0.0-0.8); EOS# 0.11 X1000 (0.0-0.7); EOS% 4.3 % (0.0-10.0); HEMATOCRIT 37.7 % (42.0-52.0); HEMOGLOBIN 11.8 g/dL (14.0-18.0); LYMPH# 0.49 X1000 (1.2-3.4); MCH 28.8 PG (27-31); MCHC 31.3 g/dL (33-37); MONO# 0.45 X1000 (0.11-0.59); MONO% 17.4 % (1.7-9.3); NEUT# 1.48 X1000 (1.4-6.5); NEUT% 57.4 % (42.2-75.2); PLT 34 X1000 (130-400); RDW 13.5 % (11.5-14.5); WBC 2.58 X1000 (4.8-10.8)
[2019-08-03 07:22] LABS: AGAP 15; ALB/GLOB RATIO 1.6; ALBUMIN 4.2 g/dL (3.5-5.0); ALKALINE PHOSPHATASE 56 U/L (32-122); BUN 4 mg/dL (8-22); CALCIUM 8.5 mg/dL (8.8-10.2); CHLORIDE 100 mmol/L (98-107); COSMO 273; CREATININE 0.6 mg/dL (0.7-1.2); ESTIMATED GFR > 60; GLUCOSE 108 mg/dL (70-104); GOT 52 U/L (10-34); GPT 30 U/L (10-44); POTASSIUM 3.3 mmol/L (3.5-5.1); SODIUM 138 mmol/L (136-145); TCO2 23 mmol/L (25-35); TOTAL BILIRUBIN 0.37 mg/dL (0.20-1.00); TOTAL PROTEIN 6.8 g/dL (6.3-8.3)
[2019-08-03] MEDS ORDERED: POTASSIUM CHLORIDE 60 MEQ in NS 500 ML IV ONE (07:28)
[2019-08-03 07:41] LABS: MAGNESIUM 2.1 mg/dL (1.5-2.7); PHOSPHORUS 3.9 mg/dL (2.7-4.5)
--- NOTE | 2019-08-03 08:38 | PROGRESS NOTE ---
DATE: 08/03/2019 SUBJECTIVE: The patient, according to nursing staff, has been more agitated overnight, and received 2 doses of phenobarbital. Upon my examination this morning, he is very is sleepy. OBJECTIVE: Vital Signs: Temperature 97.8 degrees, heart rate 104, respiratory rate 14, blood pressure 126/88, O2 saturation 99% on room air. General: This is a chronically ill-appearing, 48- year-old, male, lying in bed in no acute distress. Cardiovascular: S1, S2 heard. No murmurs, gallops, or rubs. Regular rate and rhythm. Respiratory: Clear bilaterally to auscultation. No work of breathing or using accessory muscles. Abdomen: Soft, nontender to palpation. Bowel sounds present. No organomegaly. Extremities: No clubbing, cyanosis, or edema. Peripheral pulses present in both legs. Neurological: The patient is very sleepy. Does not follow any commands. Responsive to painful stimuli. Moves all 4 extremities spontaneously. LABORATORY DATA: Platelet count 34,000, with white cell count 2.58, and hemoglobin 11.8. CMP reveals potassium 3.3 with normal phosphorus and magnesium. ASSESSMENT: 1. Alcohol withdrawal. 2. Thrombocytopenia related to chronic alcohol consumption. 3. Seizure activity secondary to condition #1. PLAN: At this point, the patient is requiring IV medication despite receiving Librium and baclofen and Ativan IV. Will continue with current management. Will continue monitoring this patient here in the PVC unit. Will continue with IV fluids. No more episodes of seizures since admission. Thrombocytopenia is still the same, most likely related to chronic alcohol consumption, but no signs of bleeding, so will continue to monitor CBC daily. cc: Marty Fink MD
[2019-08-03] MEDS: LIORESAL PO SCH ×3 (08:41→17:39)
[2019-08-03] MEDS: THIAMINE 100 MG in NS 50 ML IV SCH (13:46)
[2019-08-03] MEDS ORDERED: PHENOBARBITAL IV ONE ×2 (23:36→23:43)
[2019-08-04] MEDS ORDERED: PHENOBARBITAL IV ONE (00:40)
[2019-08-04] MEDS: LIBRIUM PO SCH ×4 (00:55→18:02)
[2019-08-04] MEDS: ATIVAN IV PRN ×7 (01:48→23:00)
[2019-08-04] MEDS: LR 1,000 ML IV SCH ×4 (03:36→20:24)
[2019-08-04 07:12] LABS: AGAP 14; ALB/GLOB RATIO 1.5; ALKALINE PHOSPHATASE 52 U/L (32-122); BUN 3 mg/dL (8-22); CALCIUM 8.8 mg/dL (8.8-10.2); CHLORIDE 101 mmol/L (98-107); COSMO 272; CREATININE 0.6 mg/dL (0.7-1.2); ESTIMATED GFR > 60; GLUCOSE 102 mg/dL (70-104); GOT 38 U/L (10-34); GPT 30 U/L (10-44); POTASSIUM 3.4 mmol/L (3.5-5.1); SODIUM 138 mmol/L (136-145); TCO2 23 mmol/L (25-35); TOTAL BILIRUBIN 0.36 mg/dL (0.20-1.00); TOTAL PROTEIN 6.6 g/dL (6.3-8.3)
[2019-08-04 07:15] LABS: BASO# 0.05 X1000 (0.0-0.2); BASO% 1.7 % (0.0-0.8); EOS# 0.12 X1000 (0.0-0.7); LYMPH# 0.62 X1000 (1.2-3.4); LYMPH% 20.8 % (20.5-51.1); MCH 29.1 PG (27-31); MCHC 31.6 g/dL (33-37); MONO# 0.58 X1000 (0.11-0.59); MONO% 19.5 % (1.7-9.3); MPV 11.7 FL (7.4-10.4); NEUT# 1.61 X1000 (1.4-6.5); PLT 48 X1000 (130-400); RBC 4.13 XMIL (4.7-6.1); RDW 13.4 % (11.5-14.5); WBC 2.98 X1000 (4.8-10.8)
[2019-08-04 07:23] LABS: MAGNESIUM 1.9 mg/dL (1.5-2.7); PHOSPHORUS 3.5 mg/dL (2.7-4.5)
[2019-08-04] MEDS ORDERED: POTASSIUM CHLORIDE 60 MEQ in NS 500 ML IV ONE (07:40)
[2019-08-04] MEDS: LIORESAL PO SCH ×3 (08:27→16:55)
--- NOTE | 2019-08-04 09:44 | PROGRESS NOTE ---
DATE: 08/04/2019 SUBJECTIVE: The patient is more awake today. According to nursing staff, he has been requiring a few doses of vitamin pushes and phenobarbital as well. OBJECTIVE: Vital Signs: Temperature 97.9 degrees, heart rate 113, respiratory rate 19, blood pressure 130/90, O2 saturation 98% on room air. General: This is a chronically ill-appearing, 48- year-old, male, lying in bed in no acute distress. Cardiovascular: S1, S2 heard. No murmurs, gallops, or rubs. Regular rate and rhythm. Respiratory: Clear bilaterally to auscultation. No work of breathing or using accessory muscles. Abdomen: Soft, nontender to palpation. Bowel sounds present. No organomegaly. Extremities: No clubbing, cyanosis, or edema. Peripheral pulses present in both legs. Neurological: The patient is more awake today. Does follow commands. Moves all 4 extremities spontaneously. LABORATORY DATA: CBC shows platelets of 48,000, with hemoglobin 12.0. Potassium 3.4, normal creatinine. ASSESSMENT: 1. Alcohol withdrawal. 2. Thrombocytopenia related to chronic alcohol consumption. 3. Seizure activity secondary to condition #1. PLAN: At this point, the patient continues to require Librium and baclofen and also Ativan pushes. He is receiving overnight also phenobarbital for agitation. At this point, I am planning to place one dose of Haldol at bedtime. The patient has not had any more episodes of seizures, and platelet count is a little bit better today. At this point, will continue to monitor this patient closely in [facility]. cc: Marty Fink MD
[2019-08-04] MEDS: THIAMINE 100 MG in NS 50 ML IV SCH (11:25)
[2019-08-04] MEDS: HALDOL IV SCH (20:08)
[2019-08-05] MEDS: ATIVAN IV PRN ×3 (01:46→20:53)
[2019-08-05] MEDS: LIBRIUM PO SCH ×4 (01:46→18:26)
[2019-08-05] MEDS: LR 1,000 ML IV SCH ×3 (03:12→20:03)
[2019-08-05 06:55] LABS: AGAP 14; ALB/GLOB RATIO 1.4; ALBUMIN 4.1 g/dL (3.5-5.0); ALKALINE PHOSPHATASE 53 U/L (32-122); BUN 5 mg/dL (8-22); CALCIUM 9.6 mg/dL (8.8-10.2); CHLORIDE 102 mmol/L (98-107); COSMO 277; CREATININE 0.6 mg/dL (0.7-1.2); ESTIMATED GFR > 60; GLUCOSE 105 mg/dL (70-104); GOT 31 U/L (10-34); GPT 29 U/L (10-44); POTASSIUM 3.3 mmol/L (3.5-5.1); SODIUM 140 mmol/L (136-145); TCO2 24 mmol/L (25-35); TOTAL BILIRUBIN 0.33 mg/dL (0.20-1.00)
[2019-08-05 07:01] LABS: BASO# 0.13 X1000 (0.0-0.2); BASO% 4.1 % (0.0-0.8); EOS# 0.09 X1000 (0.0-0.7); EOS% 2.8 % (0.0-10.0); HEMATOCRIT 39.1 % (42.0-52.0); HEMOGLOBIN 12.1 g/dL (14.0-18.0); LYMPH# 0.69 X1000 (1.2-3.4); LYMPH% 21.7 % (20.5-51.1); MCH 29.5 PG (27-31); MCHC 30.9 g/dL (33-37); MCV 95.4 FL (81-99); MONO# 0.76 X1000 (0.11-0.59); MONO% 23.9 % (1.7-9.3); MPV 11.6 FL (7.4-10.4); NEUT# 1.51 X1000 (1.4-6.5); NEUT% 47.5 % (42.2-75.2); PLT 77 X1000 (130-400); RDW 14.1 % (11.5-14.5); WBC 3.18 X1000 (4.8-10.8)
[2019-08-05] MEDS: LIORESAL PO SCH ×3 (08:19→18:26)
[2019-08-05 09:12] LABS: PHOSPHORUS 4.5 mg/dL (2.7-4.5)
[2019-08-05 09:51] LABS: EOS 2 % (1-10); LYMPHS 24 % (21-51); MONO 14 % (1-9); SEGS 60 % (42-75)
--- NOTE | 2019-08-05 10:19 | PROGRESS NOTE ---
DATE: 08/05/2019 SUBJECTIVE: This patient today tells me he has received, 2 hours ago, a dose of Ativan IV. He has been restless and confused over the last 12 hours, receiving 4 doses of Ativan. Yesterday at 9 p.m., he received Haldol as well. OBJECTIVE: Vital Signs: Temperature 97.5 degrees, heart rate 116, respiratory rate 19, blood pressure 131/68, O2 saturation 97% on room air. General: This is a 48-year-old, chronically ill- appearing, male, lying in bed in no acute distress. Cardiovascular: S1, S2 heard. No murmurs, gallops, or rubs. Regular rate and rhythm. Respiratory: Clear bilaterally to auscultation. No work of breathing or using accessory muscles. Abdomen: Soft, nontender to palpation. Bowel sounds present. No organomegaly. Extremities: No clubbing, cyanosis, or edema. Peripheral pulses present in both legs. Neurological: The patient is sleepy. He had dose of Ativan recently. Does not follow commands. LABORATORY DATA: Pending at the time of my dictation. ASSESSMENT AND PLAN: 1. Alcohol withdrawal. 2. Thrombocytopenia related to chronic alcohol consumption. 3. Seizure activity secondary to condition #1. At this point, will continue to monitor this patient here in the PVC unit. Will continue with Librium and baclofen and also Ativan pushes. If we see that this patient is requiring Ativan almost every hour to every 2 hours, we may need to transfer this patient to the intensive care unit to place him on Ativan drip. In the meantime, will continue to monitor here. Labs are pending. Will see if thrombocytopenia is getting better or not. Will transfuse if platelet count is 10,000 or less. No more episode of seizures since admission. Will continue to monitor. cc: Marty Fink MD
[2019-08-05] MEDS: THIAMINE 100 MG in NS 50 ML IV SCH (11:24)
[2019-08-05] MEDS: HALDOL IV SCH (20:03)
[2019-08-06] MEDS: LIBRIUM PO SCH ×4 (00:17→18:29)
[2019-08-06] MEDS: LR 1,000 ML IV SCH (04:00)
[2019-08-06] MEDS: CLINIMIX E 4.25%-5% SOLUTION 1,000 ML IV SCH ×2 (08:18→17:54)
[2019-08-06] MEDS: LIORESAL PO SCH ×3 (08:18→17:06)
[2019-08-06] MEDS: LIPOSYN 20% 250 ML IV SCH (08:19)
--- NOTE | 2019-08-06 10:06 | PROGRESS NOTE ---
DATE: 08/06/2019 SUBJECTIVE: The patient has been a little more calmed down, but still requiring some doses of Ativan IV and Haldol. Upon my examination this morning, he reports feeling fine, but reports that he is still shaking. OBJECTIVE: Vital Signs: Temperature 97.6 degrees, heart rate 90, respiratory rate 17, blood pressure 92/62, and O2 saturation 95% on room air. General: On examination, this is a 48-year- old male, lying in bed, in no acute distress. Cardiovascular: S1, S2 heard. No murmurs, gallops, or rubs. Regular rate and rhythm. Respiratory: Clear bilaterally to auscultation. No work of breathing or using accessory muscles. Abdomen: Soft, nontender to palpation. Bowel sounds present. No organomegaly. Extremities: No clubbing, cyanosis, or edema. Peripheral pulses present in both legs. Neurological: Patient is awake, a little bit sleepy. He does follow simple commands. LABORATORY DATA: Reviewed. ASSESSMENT: 1. Alcohol withdrawal. 2. Thrombocytopenia related to alcohol consumption. 3. Seizure activity secondary to alcohol withdrawal. PLAN: At this point, patient is more calmed down, but of course is still requiring Ativan pushes. We will continue monitoring this patient closely. Consider he has been not eating very well for the last 5 days, we will start Clinimix and lipids. His platelets from yesterday shows that they are getting better. We will continue to monitor. cc: Marty Fink MD
[2019-08-06] MEDS: ATIVAN IV PRN ×4 (11:33→22:40)
[2019-08-06] MEDS: THIAMINE 100 MG in NS 50 ML IV SCH (11:35)
[2019-08-07] MEDS: LIBRIUM PO SCH ×5 (00:09→18:38)
[2019-08-07] MEDS: ATIVAN IV PRN ×6 (02:17→22:08)
[2019-08-07] MEDS: CLINIMIX E 4.25%-5% SOLUTION 1,000 ML IV SCH ×2 (03:11→14:35)
[2019-08-07] MEDS: LIPOSYN 20% 250 ML IV SCH ×3 (05:58→08:28)
[2019-08-07] MEDS: LIORESAL PO SCH ×3 (08:29→18:38)
[2019-08-07 09:22] LABS: BASO# 0.06 X1000 (0.0-0.2); BASO% 1.9 % (0.0-0.8); EOS# 0.08 X1000 (0.0-0.7); EOS% 2.6 % (0.0-10.0); HEMATOCRIT 39.7 % (42.0-52.0); HEMOGLOBIN 12.5 g/dL (14.0-18.0); LYMPH# 0.48 X1000 (1.2-3.4); LYMPH% 15.6 % (20.5-51.1); MCH 29.3 PG (27-31); MCHC 31.5 g/dL (33-37); MONO# 0.59 X1000 (0.11-0.59); MONO% 19.2 % (1.7-9.3); NEUT# 1.87 X1000 (1.4-6.5); NEUT% 60.7 % (42.2-75.2); PLT 141 X1000 (130-400); RBC 4.27 XMIL (4.7-6.1); RDW 13.9 % (11.5-14.5); WBC 3.08 X1000 (4.8-10.8)
[2019-08-07 09:50] LABS: AGAP 13; ALBUMIN 4.4 g/dL (3.5-5.0); BUN 9 mg/dL (8-22); CALCIUM 9.3 mg/dL (8.8-10.2); CHLORIDE 102 mmol/L (98-107); COSMO 280; CREATININE 0.6 mg/dL (0.7-1.2); ESTIMATED GFR > 60; GLUCOSE 137 mg/dL (70-104); PHOSPHORUS 3.9 mg/dL (2.7-4.5); POTASSIUM 3.9 mmol/L (3.5-5.1); SODIUM 140 mmol/L (136-145); TCO2 25 mmol/L (25-35)
--- NOTE | 2019-08-07 11:22 | PROGRESS NOTE ---
DATE: 08/07/2019 SUBJECTIVE: Patient continues to be confused, still shaking. Receiving the dose of Ativan and Haldol IV, although on my examination he continues to be confused. OBJECTIVE: Vital Signs: Temperature 98.0 degrees, heart rate 96 respiratory rate 20, blood pressure 122/87, O2 saturation 99% on room air examination. General: This is a 48-year-old male, lying in bed in no acute distress. Cardiovascular exam: S1, S2 heard. No murmurs, gallops, or rubs. Regular rate and rhythm. Respiratory exam: Clear bilaterally to auscultation. No work of breathing or using accessory muscles. Abdomen: Soft. Nontender to palpation. Bowel sounds present. No organomegaly. Extremities: No clubbing, cyanosis or edema. Peripheral pulses present in both legs. Neurological exam: Patient is awake, alert, confused, a little bit sleepy. Does follow simple commands. LABORATORY DATA: Reviewed. ASSESSMENT AND PLAN: 1. Alcohol withdrawal. 2. Thrombocytopenia related to alcohol consumption. 3. Seizure activity secondary to alcohol withdrawal. 4. At this point, patient continues to require Ativan pushes and Haldol as well. We will continue with nutritional support with Clinimix and lipids. Platelets are back to normal today. We will continue to monitor complete blood count daily. cc: Marty Fink MD
[2019-08-07] MEDS: THIAMINE 100 MG in NS 50 ML IV SCH (12:13)
[2019-08-08] MEDS: LIBRIUM PO SCH ×4 (00:34→20:09)
[2019-08-08] MEDS: ATIVAN IV PRN ×4 (00:36→20:10)
[2019-08-08] MEDS: CLINIMIX E 4.25%-5% SOLUTION 1,000 ML IV SCH ×3 (04:34→16:38)
[2019-08-08] MEDS: LIPOSYN 20% 250 ML IV SCH (06:10)
[2019-08-08 06:23] LABS: INR 1.01; PROTIME 13.4 Seconds (11.0-16.0)
[2019-08-08 06:28] LABS: BASO# 0.04 X1000 (0.0-0.2); BASO% 1.2 % (0.0-0.8); EOS# 0.11 X1000 (0.0-0.7); EOS% 3.3 % (0.0-10.0); HEMATOCRIT 40.2 % (42.0-52.0); HEMOGLOBIN 12.6 g/dL (14.0-18.0); LYMPH% 21.1 % (20.5-51.1); MCH 28.9 PG (27-31); MCHC 31.3 g/dL (33-37); MCV 92.2 FL (81-99); MONO# 0.85 X1000 (0.11-0.59); MONO% 25.6 % (1.7-9.3); MPV 10.9 FL (7.4-10.4); NEUT# 1.62 X1000 (1.4-6.5); NEUT% 48.8 % (42.2-75.2); PLT 173 X1000 (130-400); RBC 4.36 XMIL (4.7-6.1); RDW 13.9 % (11.5-14.5); WBC 3.32 X1000 (4.8-10.8)
[2019-08-08 06:34] LABS: AGAP 13; ALBUMIN 4.3 g/dL (3.5-5.0); BUN 9 mg/dL (8-22); CALCIUM 9.1 mg/dL (8.8-10.2); CHLORIDE 102 mmol/L (98-107); COSMO 277; CREATININE 0.7 mg/dL (0.7-1.2); ESTIMATED GFR > 60; GLUCOSE 104 mg/dL (70-104); PHOSPHORUS 4.1 mg/dL (2.7-4.5); POTASSIUM 3.5 mmol/L (3.5-5.1); SODIUM 139 mmol/L (136-145); TCO2 24 mmol/L (25-35)
[2019-08-08 08:21] LABS: EOS 4 % (1-10); LYMPHS 18 % (21-51); MONO 18 % (1-9); SEGS 58 % (42-75)
[2019-08-08] MEDS: LIORESAL PO SCH ×3 (10:15→16:38)
[2019-08-08] MEDS: THIAMINE 100 MG in NS 50 ML IV SCH (13:18)
[2019-08-08] MEDS ORDERED: HALDOL IV PRN (15:04)
[2019-08-08] MEDS ORDERED: ATARAX PO PRN (15:09)
[2019-08-08] MEDS ORDERED: SALINE LOCK IV FLUID XX ONE (15:09)
[2019-08-08] MEDS ORDERED: PRILOSEC PO ONE (15:10)
--- NOTE | 2019-08-08 17:40 | PROGRESS NOTE ---
DATE: 08/08/2019 SUBJECTIVE: The patient has no major complaints. OBJECTIVE: Blood pressure 118/85, heart rate 94, respiratory rate 18, temperature 97.5 degrees, 100% on room air.Cardiovascular: Regular rate and rhythm. Pulmonary: Bilateral breath sounds, clear to auscultation. GI: Soft, nontender, nondistended. Bowel sounds are positive. The patient is still fairly confused. LABORATORY DATA: White count is 3, hemoglobin and hematocrit 12 and 40, platelets 173,000. Basic was normal. ASSESSMENT AND PLAN: 1. Alcohol withdrawal syndrome. He is on Librium but he is not really on a taper. It states that he is on Haldol, but he is not on any Haldol, or at least it is not ordered currently. 2. Thrombocytopenia. Actually that has resolved and stable. 3. Seizure activity is stable, likely due to alcohol withdrawal. He is not on any chronic medications. 4. Moderate protein-calorie malnutrition. He is on Clinimix and lipids. 5. Disposition pending his clinical status. He has been on 50 q.6 of Librium for a week, so I think we probably need to taper it. We will start to taper it a bit here. His mental status is better. Anticipate discharge, hopefully with followup for detoxification. cc: Mello Hairston MD
[2019-08-09] MEDS: LIBRIUM PO SCH ×4 (00:33→20:02)
[2019-08-09] MEDS: CLINIMIX E 4.25%-5% SOLUTION 1,000 ML IV SCH ×3 (00:58→06:55)
[2019-08-09] MEDS: ATIVAN IV PRN (05:43)
[2019-08-09 06:40] LABS: BASO# 0.09 X1000 (0.0-0.2); BASO% 2.3 % (0.0-0.8); EOS# 0.11 X1000 (0.0-0.7); EOS% 2.9 % (0.0-10.0); HEMATOCRIT 42.7 % (42.0-52.0); HEMOGLOBIN 13.3 g/dL (14.0-18.0); LYMPH# 0.87 X1000 (1.2-3.4); LYMPH% 22.7 % (20.5-51.1); MCH 28.7 PG (27-31); MCHC 31.1 g/dL (33-37); MONO# 1.11 X1000 (0.11-0.59); MPV 10.8 FL (7.4-10.4); NEUT# 1.65 X1000 (1.4-6.5); NEUT% 43.1 % (42.2-75.2); PLT 200 X1000 (130-400); RBC 4.64 XMIL (4.7-6.1); RDW 13.8 % (11.5-14.5); WBC 3.83 X1000 (4.8-10.8)
[2019-08-09] MEDS: LIPOSYN 20% 250 ML IV SCH (06:55)
[2019-08-09] MEDS: PRILOSEC PO SCH (06:55)
[2019-08-09 07:09] LABS: AGAP 17; ALBUMIN 4.3 g/dL (3.5-5.0); BUN 9 mg/dL (8-22); CALCIUM 9.4 mg/dL (8.8-10.2); CHLORIDE 101 mmol/L (98-107); COSMO 276; CREATININE 0.7 mg/dL (0.7-1.2); ESTIMATED GFR > 60; GLUCOSE 101 mg/dL (70-104); PHOSPHORUS 4.4 mg/dL (2.7-4.5); POTASSIUM 4.1 mmol/L (3.5-5.1); SODIUM 139 mmol/L (136-145); TCO2 21 mmol/L (25-35)
[2019-08-09] MEDS: LIORESAL PO SCH ×3 (08:31→17:18)
--- NOTE | 2019-08-09 11:56 | PROGRESS NOTE ---
DATE: 08/09/2019 SUBJECTIVE: Yesterday he has received 2 doses of Ativan. He continues to be confused at night. Helping with examination even though he was recommended to stay in the bed. Vital Signs: Temperature 97.7 degrees, heart rate 100, respiratory rate 12, blood pressure 121/81, O2 saturation 100% on room air. General: This is a 48-year-old male, lying in bed, in no acute distress. Cardiovascular: S1, S2 heard. No murmurs, gallops, or rubs. Regular rate and rhythm. Respiratory: Clear bilaterally to auscultation. No work of breathing or using accessory muscles. Abdomen: Soft, nontender to palpation. Bowel sounds present. No organomegaly. Extremities: No clubbing, cyanosis, or edema. Peripheral pulses present in both legs. Neurological: The patient is oriented and awake but still sometimes confused, wanted to get up from the bed. LABORATORY: WBC 3.93, hemoglobin 13.3, hematocrit 42.7, platelets 200,000 with normal BMP. ASSESSMENT AND PLAN: 1. Alcohol withdrawal. We will continue with Librium tapering doses and baclofen 20 mg p.o. 3 times per day. For nutritional support we are using Clinimix and lipids. I think it is very important for this patient to sleep at night, to be awake in the day and sleep at night so we will do Haldol 5 mg at bedtime. 2. Thrombocytopenia, completely resolved. 3.Seizure activity secondary to alcohol withdrawal. He has not had any more episodes of seizures while he is in the hospital. We will continue to monitor. cc: Marty Fink MD [facility]
[2019-08-09] MEDS: THIAMINE 100 MG in NS 50 ML IV SCH (13:50)
[2019-08-09] MEDS ORDERED: HALDOL IV SCH (21:00)
[2019-08-10] MEDS: LIBRIUM PO SCH ×3 (03:46→20:49)
[2019-08-10] MEDS: PRILOSEC PO SCH (06:44)
[2019-08-10] MEDS: LIORESAL PO SCH ×3 (08:43→17:24)
[2019-08-10] MEDS ORDERED: ULTRAM PO PRN (13:43)
[2019-08-10] MEDS ORDERED: TYLENOL PO PRN (15:24)
[2019-08-10] MEDS: ATIVAN IV PRN ×3 (16:05→23:22)
--- NOTE | 2019-08-10 17:07 | PROGRESS NOTE ---
DATE: 08/10/2019 SUBJECTIVE: The patient is resting comfortably. He still has periods of confusion and he is impulsive. OBJECTIVE: Vital Signs: Temperature 97.6 degrees, blood pressure 125/72, heart rate 92, respirations 18, O2 saturation is 99% on room air. General: This is an elderly male lying in bed, in no acute distress. Heart: S1, S2 normal. Regular rate and rhythm. Lungs: Equal air entry bilaterally. No wheezing. No rales. Abdomen: Positive bowel sounds. Soft, nontender, nondistended. Extremities: No edema. No cyanosis. Neurologic: The patient is awake and alert. LABS: White blood cell count 3.8, hemoglobin 13, hematocrit 42, platelets 200,000. Sodium 139, potassium 4.1 chloride 101, CO2 21, BUN 9, creatinine 0.7, glucose 101. ASSESSMENT AND PLAN: 1. Alcohol withdrawal. Improved. The patient is currently on a Librium taper and p.r.n. Ativan. Continue with multivitamins. 2. Alcohol dependence. Aware. 3. History of alcohol withdrawal-induced seizure activity. Aware. 4. Thrombocytopenia. Resolved. 5. Depression. We will start the patient on Zoloft. 6. Physical therapy has been consulted. 7. We will consult Account Support Associate for discharge planning. cc: Tamar Durbin MD
[2019-08-11] MEDS: PRILOSEC PO SCH ×2 (04:42→06:26)
[2019-08-11] MEDS: LIBRIUM PO SCH ×2 (04:42→11:56)
[2019-08-11 06:25] LABS: HEMATOCRIT 41.2 % (42.0-52.0); HEMOGLOBIN 12.9 g/dL (14.0-18.0); MCH 29.2 PG (27-31); MCHC 31.3 g/dL (33-37); MCV 93.2 FL (81-99); MPV 11.3 FL (7.4-10.4); RBC 4.42 XMIL (4.7-6.1); RDW 13.9 % (11.5-14.5); WBC 3.47 X1000 (4.8-10.8)
[2019-08-11 06:57] LABS: AGAP 15; ALB/GLOB RATIO 1.3; ALBUMIN 4.1 g/dL (3.5-5.0); ALKALINE PHOSPHATASE 49 U/L (32-122); BUN 9 mg/dL (8-22); CALCIUM 9.1 mg/dL (8.8-10.2); CHLORIDE 103 mmol/L (98-107); COSMO 275; CREATININE 0.8 mg/dL (0.7-1.2); ESTIMATED GFR > 60; GLUCOSE 85 mg/dL (70-104); GOT 28 U/L (10-34); GPT 25 U/L (10-44); POTASSIUM 4.4 mmol/L (3.5-5.1); SODIUM 139 mmol/L (136-145); TCO2 21 mmol/L (25-35); TOTAL BILIRUBIN 0.24 mg/dL (0.20-1.00); TOTAL PROTEIN 7.3 g/dL (6.3-8.3)
[2019-08-11] MEDS: ATIVAN IV PRN ×2 (07:29→11:56)
[2019-08-11] MEDS: THERA M PLUS PO SCH (08:13)
[2019-08-11] MEDS: ZOLOFT PO SCH (08:13)
[2019-08-11] MEDS: LIORESAL PO SCH ×3 (08:13→17:04)
[2019-08-11] MEDS: ATIVAN PO PRN ×3 (12:49→21:42)
--- NOTE | 2019-08-11 15:22 | PROGRESS NOTE ---
DATE: 08/11/2019 SUBJECTIVE: The patient is sitting up in a chair. He states that he is still very unsteady on his feet. He states that he is feeling a little bit better today. OBJECTIVE: Vital Signs: Temperature 98.4 degrees, blood pressure 133/90, heart rate 91, respirations 16, O2 saturation 99% on room air. General: This is a chronically ill-appearing elderly male sitting up in a chair in no acute distress. Heart: S1, S2 normal. Regular rate and rhythm. Lungs: Clear to auscultation bilaterally. Abdomen: Positive bowel sounds. Soft, nontender, nondistended. Extremities: No edema, no cyanosis. Neuro: The patient is alert and oriented x3. LABS: White blood cell count 3.4, hemoglobin 12, hematocrit 41, platelets 244,000. Sodium 139, potassium 4.4, chloride 103, CO2 21, BUN 9, creatinine 0.8. ASSESSMENT AND PLAN: 1. Alcohol withdrawal. Resolved. Continue on the Librium taper. Continue with multivitamins. 2. Alcohol dependence. Aware. The patient has been counseled about cessation. 3. History of alcohol withdrawal-induced seizure activity. Aware. 4. Depression. Continue on Zoloft. 5. Disposition. Continue with physical therapy. The patient stated that he is interested in the drug detox program at [place]. I have notified Registered Occupational Therapist. The patient should be stable for discharge home tomorrow. cc: Tamar Durbin MD
[2019-08-11] MEDS: LIBRIUM PO PRN (22:44)
[2019-08-12] MEDS: ATIVAN PO PRN ×4 (01:43→14:16)
[2019-08-12] MEDS: PRILOSEC PO SCH (06:08)
[2019-08-12] MEDS: LIBRIUM PO PRN (08:20)
[2019-08-12] MEDS: THERA M PLUS PO SCH (08:20)
[2019-08-12] MEDS: ZOLOFT PO SCH (08:20)
[2019-08-12] MEDS: LIORESAL PO SCH ×2 (08:20→13:09)
[2019-08-12 11:42] VITALS: BP 111/79
== END 2019-08-12 14:47 | disposition home or self-care (01) | DRG 897 ==
LOC: EDIPHOLD 16:32 → ED 16:32 → SUATTDRO 08-01 04:34 → OBSVTOIN 08-01 04:34 → 4N 08-01 07:30 → 2N 08-01 15:28 → 4N 08-10 22:32
PROVIDERS: ATTEND Internal Medicine